=== PATIENT | male | born 1975 | race Caucasian/White ===

== ENCOUNTER 2021-06-25 14:54 | Observation (INO) | payer OTHER ==
[~2021-06-25] VITALS: Ht 172 cm; Wt 100.5 kg
[2021-06-25] MEDS ORDERED: NS IV 1000 ML 1,000 ML IV ONE (15:15)
[2021-06-25] MEDS ORDERED: NS IV 1000 ML 1,000 ML IV SCH (15:15)
[2021-06-25] MEDS ORDERED: BENZTROPINE 2 MG/2 ML INJ (COGENTIN) AMP IV ONE (15:15)
[2021-06-25 15:29] LABS: ALBUMIN 4.1 GM/DL (3.2-4.5); CHLORIDE 99 MMOL/L (98-107); POTASSIUM 3.3 MMOL/L (3.6-5.0); SODIUM 136 MMOL/L (135-145)
--- NOTE | 2021-06-25 15:29 | ED Psychosocial ---
General Stated Complaint: DETOX Source: patient Exam Limitations: no limitations (SOLE COLON) History of Present Illness Date Seen by Provider: Jun 25, 2021 Time Seen by Provider: 14:50 Initial Comments Patient to the ER by EMS from home with chief complaint of feeling like he is coming down off of the vásquez of cocaine and alcohol for the past several days. He has been drinking a sixpack of alcohol and smoking half a gram of cocaine at a time several times a day. He denies using any other recreational drugs. He does not smoke cigarettes or chew or dip. He is not having any shortness of b reath pain nausea vomiting or diarrhea. He says he feels bad and wants to kill himself. He wants her to stop taking his heart medications and diabetes medications in hopes that he will have a heart attack and . He has had suicidal ideation in the past but not gone to an inpatient psychiatric hospital. In the past he took a bunch of sleeping pills but never got help afterwards. He is known to [facility] for primary care. He has no history of heart disease or see any other specialist. Patient states he wants to be detoxed inpatient, something to drink and something to eat. (SOLE COLON) Allergies and Home Medications Allergies Coded Allergies: No Known Drug Allergies (Unverified , 06/25/21) Patient Home Medication List Home Medication List Reviewed: Yes (SOLE COLON) Review of Systems Constitutional: No chills, No diaphoresis EENTM: No ear discharge, No ear pain Respiratory: No cough, No short of breath Cardiovascular: No chest pain, No edema Gastrointestinal: No abdominal pain, No nausea, No vomiting Genitourinary: No discharge, No dysuria Musculoskeletal: No back pain, No joint pain Psychiatric/Neurological: Denies Numbness, Denies Tingling (SOLE COLON) All Other Systems Reviewed Negative Unless Noted: Yes (SOLE COLON) Past Zrswrkm-Cgangm-Zykujo Hx Patient Social History Tobacco Use?: No Use of E-Cig and/or Vaping dev: No Substance use?: Yes Substance type: Other (Cocaine) Alcohol Use?: Yes Alcohol type: Beer (6 pack a day) Alcohol Frequency: Daily (6 pack a day) (SOLE COLON) Physical Exam Vital Signs - First Documented 06/25/21 14:54 Temp 36.9 Pulse 93 Resp 18 B/P (MAP) 155/113 (127) (MELIZA RICCI DO) Capillary Refill : (SOLE COLON) Height, Weight, BMI Height: '" Weight: lbs. oz. kg; BMI Method: General Appearance: mild distress HEENT: PERRL/EOMI, pharynx normal Neck: non-tender, full range of motion, supple, normal inspection Respiratory: lungs clear, normal breath sounds, no respiratory distress, no accessory muscle use Cardiovascular: normal peripheral pulses, regular rate, rhythm Peripheral Pulses: 2+ Radial Pulses (R), 2+ Radial Pulses (L) Gastrointestinal: normal bowel sounds, non tender, soft Neurologic/Psychiatric: driver helper II-XII nml as tested, no motor/sensory deficits, alert, oriented x 3, other (Mildly anxious affect. Lip smacking and tongue thrusting the able to answer all questions satisfactorily) Appearance/Memory: no memory impairment, disheveled Behavior/Eye Contact: cooperative, good eye contact, normal speech Thoughts/Hallucinations: paranoid (Mild; concerned that the [employer] has placed lots of cameras in his house but does not know why. Says he likes to smoke crack in front of the camera's.) Skin: normal color, warm/dry (SOLE COLON) Progress/Results/Core Measures Results/Orders Lab Results Laboratory Tests Test 06/25/21 15:07 06/25/21 15:28 06/25/21 18:38 06/25/21 19:54 Range/Units White Blood Count 7.6 4.3-11.0 10^3/uL Red Blood Count 5.65 H 4.30-5.52 10^6/uL Hemoglobin 16.4 13.3-17.7 g/dL Hematocrit 46 40-54 % Mean Corpuscular Volume 82 80-99 fL Mean Corpuscular Hemoglobin 29 25-34 pg Mean Corpuscular Hemoglobin Concent 36 32-36 g/dL Red Cell Distribution Width 13.4 10.0-14.5 % Platelet Count 232 130-400 10^3/uL Mean Platelet Volume 11.3 9.0-12.2 fL Immature Granulocyte % (Auto) 0 % Neutrophils (%) (Auto) 79 H 42-75 % Lymphocytes (%) (Auto) 10 L 12-44 % Monocytes (%) (Auto) 8 0-12 % Eosinophils (%) (Auto) 3 0-10 % Basophils (%) (Auto) 1 0-10 % Neutrophils # (Auto) 6.0 1.8-7.8 10^3/uL Lymphocytes # (Auto) 0.8 L 1.0-4.0 10^3/uL Monocytes # (Auto) 0.6 0.0-1.0 10^3/uL Eosinophils # (Auto) 0.2 0.0-0.3 10^3/uL Basophils # (Auto) 0.0 0.0-0.1 10^3/uL Immature Granulocyte # (Auto) 0.0 0.0-0.1 10^3/uL Sodium Level 136 135-145 MMOL/L Potassium Level 3.3 L 3.6-5.0 MMOL/L Chloride Level 99 98-107 MMOL/L Carbon Dioxide Level 23 21-32 MMOL/L Anion Gap 14 5-14 MMOL/L Blood Urea Nitrogen 6 L 7-18 MG/DL Creatinine 1.02 0.60-1.30 MG/DL Estimat Glomerular Filtration Rate 78 BUN/Creatinine Ratio 6 Glucose Level 226 H 70-105 MG/DL Calcium Level 9.6 8.5-10.1 MG/DL Corrected Calcium 9.5 8.5-10.1 MG/DL Total Bilirubin 2.1 H 0.1-1.0 MG/DL Aspartate Amino Transf (AST/SGOT) 35 H 5-34 U/L Alanine Aminotransferase (ALT/SGPT) 38 0-55 U/L Alkaline Phosphatase 77 40-136 U/L Total Creatine Kinase 140 30-200 U/L Total Protein 6.8 6.4-8.2 GM/DL Albumin 4.1 3.2-4.5 GM/DL Salicylates Level < 5.0 L 5.0-20.0 MG/DL Acetaminophen Level < 10 L 10-30 UG/ML Serum Alcohol < 10 <10 MG/DL Urine Color YELLOW Urine Clarity CLEAR Urine pH 6.0 5-9 Urine Specific Wallace >=1.030 1.016-1.022 Urine Protein 2+ H NEGATIVE Urine Glucose (UA) 1+ H NEGATIVE Urine Ketones NEGATIVE NEGATIVE Urine Nitrite NEGATIVE NEGATIVE Urine Bilirubin 1+ H NEGATIVE Urine Urobilinogen 1.0 < = 1.0 MG/DL Urine Leukocyte Esterase NEGATIVE NEGATIVE Urine RBC (Auto) NEGATIVE NEGATIVE Urine RBC NONE /HPF Urine WBC 2-5 /HPF Urine Crystals PRESENT H /LPF Urine Amorphous Sediment FEW VONDA URATES H /LPF Urine Bacteria TRACE /HPF Urine Casts PRESENT /LPF Urine Hyaline Casts 25-50 H /LPF Urine Mucus LARGE H /LPF Urine Culture Indicated NO Urine Opiates Screen NEGATIVE NEGATIVE Urine Oxycodone Screen NEGATIVE NEGATIVE Urine Methadone Screen NEGATIVE NEGATIVE Urine Propoxyphene Screen NEGATIVE NEGATIVE Urine Barbiturates Screen NEGATIVE NEGATIVE Ur Tricyclic Antidepressants Screen NEGATIVE NEGATIVE Urine Phencyclidine Screen NEGATIVE NEGATIVE Urine Amphetamines Screen NEGATIVE NEGATIVE Urine Methamphetamines Screen NEGATIVE NEGATIVE Urine Benzodiazepines Screen NEGATIVE NEGATIVE Urine Cocaine Screen POSITIVE H NEGATIVE Urine Cannabinoids Screen NEGATIVE NEGATIVE SARS-CoV-2 RNA (RT-PCR) Not Detected Not Detecte Glucometer 293 H 70-110 MG/DL Test 06/25/21 21:31 Range/Units Glucometer 265 H 70-110 MG/DL (KEIRY,MELIZA K DO) My Orders Orders - KEIRY,MELIZA K DO Covid 19 Inhouse Test (06/25/21 17:57) Lidocaine 2% Viscous 15 Ml (Xylocaine Vi (06/25/21 19:30) Antacid Suspension (Mylanta Suspension (06/25/21 19:30) Accucheck Stat ONCE (06/25/21 19:36) Insulin (Regular) Human (Novolin R (Per (06/25/21 20:15) Accucheck Stat ONCE (06/25/21 21:32) (KEIRY,MELIZA K DO) Medications Given in ED Current Medications Medications Dose Ordered Sig/Ganesh Route Start Time Stop Time Status Last Admin Dose Admin Al Hydrox/Mg Hydrox/Simethicone 30 ml ONCE ONCE PO 06/25/21 19:30 06/25/21 19:31 DC 06/25/21 20:02 30 ML Benztropine Mesylate 2 mg ONCE ONCE IV 06/25/21 15:15 06/25/21 15:21 DC 06/25/21 16:30 2 MG Folic Acid 1 mg ONCE ONCE PO 06/25/21 15:45 06/25/21 15:46 DC 06/25/21 16:30 1 MG Insulin Human Regular 15 unit ONCE ONCE SC 06/25/21 20:15 06/25/21 20:16 DC 06/25/21 20:08 15 UNIT Lidocaine HCl 15 ml ONCE ONCE PO 06/25/21 19:30 06/25/21 19:31 DC 06/25/21 20:02 15 ML Thiamine HCl 100 mg ONCE ONCE PO 06/25/21 15:45 06/25/21 15:46 DC 06/25/21 16:56 100 MG (MELIZA RICCI DO) Vital Signs/I&O 06/25/21 14:54 Temp 36.9 Pulse 93 Resp 18 B/P (MAP) 155/113 (127) (MELIZA RICCI DO) Progress Progress Note #1: Time: 15:30 Progress Note Patient's not any significant acute delirium. No history of delirium tremens. Plan to give a couple liters of fluids folate and thiamine, Cogentin for his lipsmacking to see if it helps and check for rhabdomyolysis. After medical work-up we can then have the screeners from [facility] talk to him about appropriate follow-up. Progress Note #2: Time: 17:11 Progress Note Patient is resting quietly and got his thiamine and folate. He did finally get his Cogentin as well which helped with some of his dystonic symptoms. He did eat some pizza and slept and states that he would like still to go inpatient. We did discuss outpatient versus inpatient therapy and he is voluntary to go inpatient. He still endorses suicidal ideation with a plan to inject solvents or cleaning fluids into his veins. He says he does not have any at home but he could easily get some. Patient states he is never done this before. He says in the past when he tried to kill himself he was sleeping pills. The nurse was asked to contact the screeners for mental health so that we can start a telehealth screen. He is not endorsing any further paranoid delusions at this time. He has slept off and on since he got here. (SOLE COLON) Progress Note : Progress Note 1814--ASSUMED CARE FROM DR. COLON. PT IS CURRENTLY DOING A TELEHEALTH SCREEN. PT HAS BEEN EATING PIZZA THAT HE BROUGHT WITH HIM IN A BAG. PT HAS ALSO EATEN AN SANDWICH AND CHIPS PROVIDED BY HOSPITAL. 1899--TELEHEALTH SCREENER HAS DETERMINED THAT PT MEETS CRITERIA FOR INPATIENT TREATMENT, AND IS CURRENTLY ATTEMPTING TO FIND PLACEMENT 1929--PT'S INFORMATION IS BEING SENT TO [facility], THEY HAVE A BED 2034--[facility] HAS DECLINED DUE TO POSSIBILITY OF WITHDRAWL, ALSO ELEVATED BLOOD GLUCOSE. ADVISES TO ADMIT FOR 24 HOURS AND CALL THEM BACK PT IS SUPPOSED TO BE ON INSULIN, BUT REFUSES TO TAKE IT OR ANY OTHER MEDICATIONS, DOES NOT CHECK BLOOD SUGAR OR FOLLOW ANY DIABETIC DIET PT STATES HE HAS BEEN ADMITTED FOR PSYCH ISSUES SEVERAL TIMES. THE LAST TIME WAS OVER A YEAR AGO AT THE [facility] IN [place] PT IS PLEASANT AND COOPERATIVE AT THIS TIME PT CONTINUES TO BE AGREEABLE TO INPATIENT PSYCHIATRIC CARE, WELL ADMIT HERE FOR STABILIZATION TONIGHT. (MELIZA RICCI DO) Initial ECG Impression Date: Jun 25, 2021 Initial ECG Impression Time: 14:58 Initial ECG Rate: 95 Initial ECG Rhythm: Normal Sinus Initial ECG Intervals: Normal Initial ECG Impression: Normal, Nonspecific Changes Initial ECG Comparisson: No Previous ECG Available Comment Sinus rhythm without clinically relevant ST changes. Non specific half block ST elevation and anterior and lateral leads V1 through V5. (SOLE COLON) Departure Communication (Admissions) 2038--CALLED DR. THOMAS, MESSAGE LEFT ON CELL. 2054--SPOKE WITH DR. THOMAS, ACCEPTS PT FOR ADMIT (MELIZA RICCI DO) Impression Primary Impression: Passive suicidal ideations Additional Impressions: Substance abuse NONCOMPLIANT DIABETIC Alcohol abuse Cocaine use HTN (hypertension) Disposition: ADMITTED INPATIENT Condition: Stable Admissions Decision to Admit Reason: Admit from ER (General) Decision to Admit/Date: Jun 25, 2021 Time/Decision to Admit Time: 20:55 (MELIZA RICCI DO) SOLE COLON Jun 25, 2021 15:29 MELIZA RICCI DO Jun 25, 2021 18:44
[2021-06-25 15:31] LABS: BASOPHILS % (AUTO) 1 % (0-10); CALCIUM 9.6 MG/DL (8.5-10.1); EOSINOPHILS # (AUTO) 0.2 10^3/uL (0.0-0.3); EOSINOPHILS % (AUTO) 3 % (0-10); HEMATOCRIT 46 % (40-54); HEMOGLOBIN 16.4 g/dL (13.3-17.7); LYMPHOCYTES # (AUTO) 0.8 10^3/uL (1.0-4.0); LYMPHOCYTES % (AUTO) 10 % (12-44); MEAN CORPUSCULAR HEMOGLOBIN 29 pg (25-34); MEAN CORPUSCULAR HGB CONC 36 g/dL (32-36); MEAN CORPUSCULAR VOLUME 82 fL (80-99); MEAN PLATELET VOLUME 11.3 fL (9.0-12.2); MONOCYTES # (AUTO) 0.6 10^3/uL (0.0-1.0); MONOCYTES % (AUTO) 8 % (0-12); NEUTROPHILS % (AUTO) 79 % (42-75); PLATELET COUNT 232 10^3/uL (130-400); WHITE BLOOD COUNT 7.6 10^3/uL (4.3-11.0)
[2021-06-25 15:32] LABS: GLUCOSE 226 MG/DL (70-105); TOTAL PROTEIN 6.8 GM/DL (6.4-8.2)
[2021-06-25 15:33] LABS: CARBON DIOXIDE 23 MMOL/L (21-32)
[2021-06-25 15:34] LABS: BILIRUBIN,TOTAL 2.1 MG/DL (0.1-1.0)
[2021-06-25 15:36] LABS: ALKALINE PHOSPHATASE 77 U/L (40-136); CREATININE SERUM 1.02 MG/DL (0.60-1.30); GFR ESTIMATED 78
[2021-06-25 15:37] LABS: BUN/CREATININE RATIO 6
[2021-06-25 15:38] LABS: SALICYLATE < 5.0 MG/DL (5.0-20.0)
[2021-06-25 15:39] LABS: ALANINE AMINOTRANSFERASE 38 U/L (0-55)
[2021-06-25 15:42] LABS: ACETAMINOPHEN < 10 UG/ML (10-30)
[2021-06-25] MEDS ORDERED: FOLIC ACID 1 MG TAB PO ONE (15:45)
[2021-06-25] MEDS ORDERED: THIAMINE 100 MG (VITAMIN B-1) TAB PO ONE (15:45)
[2021-06-25 15:51] LABS: CLARITY,URINE CLEAR; COLOR,URINE YELLOW; GLUCOSE, URINE (UA) 1+ (NEGATIVE); KETONES,URINE NEGATIVE (NEGATIVE); LEUKOCYTE ESTERASE ,URINE NEGATIVE (NEGATIVE); NITRITE,URINE NEGATIVE (NEGATIVE); PROTEIN,URINE 2+ (NEGATIVE)
[2021-06-25 16:11] LABS: AMPHETAMINE SCREEN, URINE NEGATIVE (NEGATIVE); BARBITURATE SCREEN URINE NEGATIVE (NEGATIVE); BENZODIAZEPINES SCREEN URINE NEGATIVE (NEGATIVE); CANNABINOID SCREEN, URINE NEGATIVE (NEGATIVE); COCAINE SCREEN URINE POSITIVE (NEGATIVE); METHADONE STAT NEGATIVE (NEGATIVE); METHAMPHETAMINE SCREEN URINE S NEGATIVE (NEGATIVE); OPIATE SCREEN URINE NEGATIVE (NEGATIVE); OXYCODONE STAT NEGATIVE (NEGATIVE); PROPOXYPHENE STAT NEGATIVE (NEGATIVE); TRICYCLIC ANTIDEPRESSANTS SCRE NEGATIVE (NEGATIVE)
[2021-06-25 16:12] LABS: BILIRUBIN,URINE 1+ (NEGATIVE)
[2021-06-25 16:16] LABS: AMORPHOUS SEDIMENT,UR FEW AMOR URATES /LPF; BACTERIA,URINE TRACE /HPF; HYALINE CASTS, URINE 25-50 /LPF
[2021-06-25] MEDS ORDERED: LIDOCAINE 2% VISCOUS 15 ML UDC PO ONE (19:30)
[2021-06-25] MEDS ORDERED: ANTACID SUSP 30 ML UDC (MYLANTA) PO ONE (19:30)
[2021-06-25] MEDS ORDERED: inSUlin (REGULAR) HUMAN 1 UNIT/0.01 ML (CHARGE PER UNIT) SC ONE (20:15)
[2021-06-25] MEDS ORDERED: ONDANSETRON 4 MG/2 ML (SDV) Z0FRAN IV PRN ×2 (22:30→22:45)
[2021-06-25] MEDS ORDERED: ACETAMINOPHEN 500 MG TAB (TYLENOL) PO PRN (22:30)
[2021-06-25] MEDS ORDERED: ONDANSETRON 4 MG (ZOFRAN) ORAL DISSOLVE TAB SL PRN (22:45)
[2021-06-25] MEDS ORDERED: SENNA W/DOCUSATE (SENOKOT S) TABLET PO PRN (22:45)
[2021-06-25] MEDS ORDERED: LORazepam INJ 2 MG/ML (ATIVAN) VIAL IM/IV PRN (22:45)
[2021-06-25] MEDS ORDERED: LORazepam 1 MG (ATIVAN) TAB PO PRN (22:45)
[2021-06-25] MEDS: 1/2 NS W/KCL 20 MEQ/L 1,000 ML IV SCH (23:14)
[2021-06-25] MEDS: PANTOPRAZOLE 40 MG (PROTONIX) VIAL IV SCH (23:14)
[2021-06-25] MEDS ORDERED: MELATONIN 3 MG TABLET ONE (23:26)
--- NOTE | 2021-06-25 23:52 | Tele-ICU Progress Note ---
Progress Note 45M with DM, HTN, polysub abuse presented for voluntary admission for anticipated withdrawals and suicidal ideation. Has been drinking excessively and using cocaine, requesting inpatient detox. Initially reported wanting to stop all meds so he would have a heart attack and , however later endorsed wanting to inject cleaning solution. Was accepted to inpatient psych, pending 24-hour observation for withdrawal syndrome. - insulin sliding scale - CIWA - telesitter - transfer to psych when able Focused Exam Height, Weight, BMI Height: '" Weight: lbs. oz. kg; 33.05 BMI Method: MEHRAN RAMOS MD Jun 25, 2021 23:52
[2021-06-25] MEDS: MELATONIN 3 MG TABLET PO SCH (23:53)
[2021-06-26] MEDS: LORazepam INJ 2 MG/ML (ATIVAN) VIAL IV PRN ×4 (02:07→13:28)
[2021-06-26 04:05] LABS: BASOPHILS % (AUTO) 1 % (0-10); EOSINOPHILS # (AUTO) 0.3 10^3/uL (0.0-0.3); EOSINOPHILS % (AUTO) 5 % (0-10); HEMATOCRIT 42 % (40-54); HEMOGLOBIN 14.3 g/dL (13.3-17.7); LYMPHOCYTES % (AUTO) 18 % (12-44); MEAN CORPUSCULAR HEMOGLOBIN 29 pg (25-34); MEAN CORPUSCULAR HGB CONC 35 g/dL (32-36); MEAN CORPUSCULAR VOLUME 84 fL (80-99); MEAN PLATELET VOLUME 11.7 fL (9.0-12.2); MONOCYTES # (AUTO) 0.5 10^3/uL (0.0-1.0); MONOCYTES % (AUTO) 9 % (0-12); NEUTROPHILS % (AUTO) 68 % (42-75); PLATELET COUNT 180 10^3/uL (130-400); WHITE BLOOD COUNT 5.9 10^3/uL (4.3-11.0)
[2021-06-26 04:16] LABS: POTASSIUM 3.2 MMOL/L (3.6-5.0)
[2021-06-26 04:18] LABS: CALCIUM 8.8 MG/DL (8.5-10.1)
[2021-06-26 04:22] LABS: CREATININE SERUM 0.97 MG/DL (0.60-1.30); PHOSPHORUS 3.4 MG/DL (2.3-4.7)
[2021-06-26 04:24] LABS: MAGNESIUM 2.1 MG/DL (1.6-2.4)
[2021-06-26] MEDS: POTASSIUM CL 10MEQ/50ML IVPB 50 ML IV SCH (04:51)
[2021-06-26] MEDS: KCL 20 MEQ TAB (K-DUR) PO SCH (04:51)
[2021-06-26] MEDS: MAGNESIUM 1 GM/100 ML IVPB 100 ML IV SCH (04:51)
[2021-06-26] MEDS: inSUlin ASPART (NovoLOG) 1 UNIT/0.01 ML (CHARGE PER UNIT) SC SCH ×3 (05:09→16:09)
[2021-06-26] MEDS: 1/2 NS W/KCL 20 MEQ/L 1,000 ML IV SCH ×3 (06:29→20:48)
[2021-06-26] MEDS: PANTOPRAZOLE 40 MG (PROTONIX) VIAL IV SCH (08:16)
[2021-06-26] MEDS ORDERED: KCL 20 MEQ TAB (K-DUR) PO ONE ×2 (09:00→11:00)
[2021-06-26] MEDS: THIAMINE INJECTION 100 MG, FOLIC ACID INJECTION 1 MG, MAGNESIUM SULFATE 2 GM, VITAMIN M... IV SCH ×5 (09:15)
--- NOTE | 2021-06-26 10:56 | Tele-ICU Progress Note ---
Subjective Date Seen by a Provider: Jun 26, 2021 Time Seen by a Provider: 10:30 Subjective/Events-last exam Patient acknowledged, consented, and participated in this virtual visit which was conducted using real time audio/video. Thank you for asking us to see this patient for withdrawal from Alcohol/Cocaine. HPC: Recent events: Nil overnight ROS limited to HPI PE: VSS Appears comfortable. HEENT: No obvious masses, adenopathy or JVD. Chest: clear to auscultation. CV: RRR S1 S2 No murmur or added sounds. Abd: Non-tender. Bowel sounds +. : Unremarkable. Beckman: N . OIL AND GAS RECRUITER/psychiatric: Alert and oriented, grossly intact. No obvious focal findings. Extremities:No edema. Capillary refill < 3 seconds. Skin: unremarkable. Results: Decreased K 3.2 . A/P: Substance Withdrawal Syndrome: Cont PRN ativan, KCl. Monitor in ICU.Available chart/ vitals / labs / Images reviewed Video assessment done using teleICU camera, rest of exam as per yarn examiner: critically ill patient. Discussed with LISA Saenz. Asked RN to reach out to eICU if any questions or concerns later. Time spent with patient//coordination of care with other health professionals (mins) 5: Sepsis Event Evaluation Height, Weight, BMI Height: '" Weight: lbs. oz. kg; 33.05 BMI Method: Exam Exam Patient acknowledged, consented, and participated in this virtual visit which was conducted using real time audio/video Vital Signs Date Time Temp Pulse Resp B/P (MAP) Pulse Ox O2 Delivery O2 Flow Rate FiO2 06/26/21 10:00 72 20 123/85 (98) 93 Room Air 06/26/21 09:00 71 20 127/83 (98) 96 Room Air 06/26/21 08:00 69 20 121/88 (101) 98 Room Air 06/26/21 07:45 36.0 06/26/21 07:00 69 17 145/99 (113) Room Air 06/26/21 07:00 69 06/26/21 06:00 78 20 133/70 (91) 96 Room Air 06/26/21 05:00 73 19 135/90 (105) 96 Room Air 06/26/21 04:00 67 16 130/96 (107) 97 Room Air 06/26/21 04:00 36.6 06/26/21 03:45 Room Air 06/26/21 03:00 80 17 120/92 (101) 96 Room Air 06/26/21 02:00 68 19 118/74 (89) 100 Room Air 06/26/21 01:00 71 15 147/78 (101) 96 Room Air 06/26/21 01:00 71 06/26/21 00:00 73 16 141/98 (112) 97 Room Air 06/25/21 23:00 81 19 195/123 (147) 100 Room Air 06/25/21 23:00 Room Air 06/25/21 22:45 87 16 97 Room Air 06/25/21 22:34 76 06/25/21 22:15 73 15 160/111 (127) 98 Room Air 06/25/21 22:15 36.4 06/25/21 22:00 93 18 129/80 98 Room Air 06/25/21 14:54 36.9 93 18 155/113 (127) I & O 06/26/21 07:00 Intake Total 2200 ml Output Total 150 ml Balance 2050 ml Height & Weight Height: '" Weight: lbs. oz. kg; 33.05 BMI Method: General Appearance: Obese Capillary Refill: Less Than 3 Seconds Peripheral Pulses: 1+ Dorsalis Pedis (R), 1+ Left Dors-Pedis (L); 2+ Radial Pulses (R), 2+ Radial Pulses (L) Gastrointestinal: normal bowel sounds, non tender, soft Results Lab Laboratory Tests 06/25/21 15:07 06/26/21 03:20 Assessment/Plan Assessment/Plan see free text Critical Care: Critically Ill Patient Time spent on discussion(mins): 0 MIGUEL AGUILAR MD Jun 26, 2021 10:56
[2021-06-26] MEDS: ANTACID SUSP 30 ML UDC (MYLANTA) PO PRN ×2 (12:58→15:50)
[2021-06-26 14:06] VITALS: BP 129/94
[2021-06-26] MEDS ORDERED: EMPA25TA PO (14:25)
[2021-06-26] MEDS ORDERED: METF-478 PO (14:25)
[2021-06-26] MEDS ORDERED: LOSA25TA41 PO (14:25)
[2021-06-26] MEDS ORDERED: ASPI-1238 PO (14:25)
[2021-06-26] MEDS ORDERED: INSU100I55 SQ (14:25)
[2021-06-26] MEDS ORDERED: ATOR80TA76 PO (14:25)
[2021-06-26] MEDS ORDERED: CARV6.252 PO (14:25)
[2021-06-26] MEDS ORDERED: OLN5T PO (14:25)
[2021-06-26] MEDS ORDERED: INSU100I10 SQ (14:25)
[2021-06-26 15:13] VITALS: BP 142/93
--- NOTE | 2021-06-26 17:14 | History & Physical-Hospitalist ---
History of Present Illness HPI/Chief Complaint Juan Gonzalez is a 45-year-old male with past medical history of hypertension, hyperlipidemia, type 2 diabetes mellitus on insulin, depression, who presented with suicidal ideation. He has reportedly been smoking crack cocaine and drinking alcohol daily. He was making suicidal statements in the emergency room. Upon my examination, he would not wake up and answer questions. He would open his eyes but refused to participate. He was screened by a mental health provider and deemed to require inpatient psychiatric treatment. He is on a waiting list at [facility]. Source: RN/MD Exam Limitations: clinical condition Date Seen 06/26/21 Time Seen by a Provider: 10:15 Attending Physician Davon Rhodes MD PCP Referring Physician Date of Admission Jun 25, 2021 at 21:44 Home Medications & Allergies Home Medications Reviewed patient Home Medication Reconciliation performed by pharmacy medication reconciliations audio technician and/or nursing. Patients Allergies have been reviewed. Allergies Allergies Coded Allergies No Known Drug Allergies (Unverified06/25/21) Past Avqmchk-Gyfqgk-Mwiiuk Hx Patient Social History Tobacco Use?: No Use of E-Cig and/or Vaping dev: No Substance use?: Yes Substance type: Other Additional substance use comme: COCAINE Substance frequency: Daily Alcohol Use?: Yes Alcohol type: Beer Alcohol Frequency: Daily Pt feels they are or have been: Yes Current Status Advance Directives: No Communicates: Verbally Primary Language: Uzbek Preferred Spoken Language: Uzbek Is interpretation needed?: No Past Medical History High Cholesterol, Hypertension Diabetes, Insulin dep Nursing Suicide Risk Notes: Pt reports that he has not been taking his prescriptions medication in hopes of "having a heart attack and dying" and if that didn't work, he would inject cleaning solution in his arm. Pt reports he has previously attempted suicide years ago by taking a large amount of sleeping pills Family Medical History No Pertinent Family Hx Review of Systems ROS-Unable to Obtain: Uncooperative Constitutional: see HPI Physical Exam Physical Exam Vital Signs Vital Signs - First Documented 06/25/21 06/25/21 14:54 22:00 Temp 36.9 Pulse 93 Resp 18 B/P (MAP) 155/113 (127) Pulse Ox 98 O2 Delivery Room Air Capillary Refill : Less Than 3 Seconds Height, Weight, BMI Height: '" Weight: lbs. oz. kg; 33.05 BMI Method: General Appearance: No Apparent Distress, Obese HEENT: PERRL/EOMI, Pharynx Normal Neck: Normal Inspection, Supple Respiratory: Lungs Clear, Normal Breath Sounds, No Respiratory Distress Cardiovascular: Regular Rate, Rhythm, No Edema, No Murmur Gastrointestinal: Normal Bowel Sounds, Non Tender, Soft Extremity: Normal Inspection, Non Tender, No Pedal Edema Neurologic/Psychiatric: Alert, Depressed Affect, Other (Uncooperative) Skin: Normal Color, Warm/Dry Lymphatic: No Adenopathy Results Results/Procedures Labs Laboratory Tests 06/25/21 15:07 06/26/21 03:20 Patient resulted labs reviewed. Imaging: Reviewed Imaging Report Assessment/Plan Admission Diagnosis Suicidal ideation Admission Status: Observation Reason for Inpatient Admission: Monitoring for withdrawal Assessment and Plan Suicidal ideation Screened by mental health provider Deemed to require inpatient psychiatric treatment Awaiting acceptance Social work assisting T2DM with hyperglycemia Begin Levemir Begin Novolog with meals Sliding scale insulin HTN Continue Coreg and Losartan HLD Continue Lipitor Alcohol abuse CIWA protocol Cocaine abuse Monitor, no acute management needs Obesity Clinically significant, no acute management needs Diagnosis/Problems Diagnosis/Problems (1) Passive suicidal ideations Status: Acute (2) Cocaine use Status: Acute (3) Alcohol abuse Status: Acute (4) T2DM (type 2 diabetes mellitus) Status: Acute Qualifiers: Diabetes mellitus longterm insulin use: with buttermaker use Diabetes mellitus complication status: with hyperglycemia Qualified Codes: E11.65 - Type 2 diabetes mellitus with hyperglycemia; 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
[2021-06-26] MEDS ORDERED: inSUlin ASPART (NovoLOG) 1 UNIT/0.01 ML (CHARGE PER UNIT) SC SCH (17:15)
[2021-06-26 19:05] VITALS: BP 128/86
[2021-06-26] MEDS: OLANZapine 5 MG (ZyPREXA) TAB PO SCH (20:45)
[2021-06-26] MEDS: MELATONIN 3 MG TABLET PO SCH (20:46)
[2021-06-26 23:41] VITALS: BP 110/74
[2021-06-27 03:31] VITALS: BP 103/70
[2021-06-27 05:16] LABS: BASOPHILS % (AUTO) 0 % (0-10); EOSINOPHILS # (AUTO) 0.3 10^3/uL (0.0-0.3); EOSINOPHILS % (AUTO) 4 % (0-10); HEMATOCRIT 42 % (40-54); HEMOGLOBIN 14.1 g/dL (13.3-17.7); LYMPHOCYTES # (AUTO) 0.9 10^3/uL (1.0-4.0); LYMPHOCYTES % (AUTO) 16 % (12-44); MEAN CORPUSCULAR HEMOGLOBIN 29 pg (25-34); MEAN CORPUSCULAR HGB CONC 33 g/dL (32-36); MEAN CORPUSCULAR VOLUME 86 fL (80-99); MEAN PLATELET VOLUME 11.9 fL (9.0-12.2); MONOCYTES # (AUTO) 0.5 10^3/uL (0.0-1.0); MONOCYTES % (AUTO) 9 % (0-12); NEUTROPHILS # (AUTO) 4.1 10^3/uL (1.8-7.8); NEUTROPHILS % (AUTO) 71 % (42-75); PLATELET COUNT 158 10^3/uL (130-400); WHITE BLOOD COUNT 5.8 10^3/uL (4.3-11.0)
[2021-06-27 05:25] LABS: POTASSIUM 4.2 MMOL/L (3.6-5.0)
[2021-06-27 05:26] LABS: CALCIUM 8.6 MG/DL (8.5-10.1)
[2021-06-27 05:30] LABS: CREATININE SERUM 0.82 MG/DL (0.60-1.30); PHOSPHORUS 2.1 MG/DL (2.3-4.7)
[2021-06-27 05:33] LABS: MAGNESIUM 2.3 MG/DL (1.6-2.4)
[2021-06-27] MEDS: MAGNESIUM 1 GM/100 ML IVPB 100 ML IV SCH (05:45)
[2021-06-27] MEDS: KCL 20 MEQ TAB (K-DUR) PO SCH (05:45)
[2021-06-27] MEDS: POTASSIUM CL 10MEQ/50ML IVPB 50 ML IV SCH (05:45)
[2021-06-27] MEDS ORDERED: inSUlin ASPART (NovoLOG) 1 UNIT/0.01 ML (CHARGE PER UNIT) SC SCH ×2 (07:00→12:00)
[2021-06-27 07:45] VITALS: BP 138/80
[2021-06-27] MEDS: 1/2 NS W/KCL 20 MEQ/L 1,000 ML IV SCH ×4 (07:50→22:24)
[2021-06-27] MEDS ORDERED: POT PHOS/NA PHOS (K-PHOS NEUTRAL) PO ONE (08:30)
[2021-06-27] MEDS ORDERED: LOSARTAN 25 MG (COZAAR) TAB PO SCH (09:00)
[2021-06-27] MEDS: PANTOPRAZOLE 40 MG (PROTONIX) VIAL IV SCH (09:38)
[2021-06-27] MEDS: LOSARTAN 25 MG (COZAAR) TAB PO SCH ×2 (09:38→22:24)
[2021-06-27] MEDS: THIAMINE INJECTION 100 MG, FOLIC ACID INJECTION 1 MG, MAGNESIUM SULFATE 2 GM, VITAMIN M... IV SCH ×5 (09:53)
[2021-06-27 11:05] VITALS: BP 113/78
[2021-06-27] MEDS: inSUlin ASPART (NovoLOG) 1 UNIT/0.01 ML (CHARGE PER UNIT) SC SCH ×5 (12:34→22:24)
--- NOTE | 2021-06-27 12:43 | Progress Note - Hospitalist ---
Subjective HPI/CC On Admission Date Seen by Provider: Jun 27, 2021 Time Seen by Provider: 10:25 Juan Gonzalez is a 45-year-old male with past medical history of hypertension, hyperlipidemia, type 2 diabetes mellitus on insulin, depression, who presented with suicidal ideation. He has reportedly been smoking crack cocaine and drinking alcohol daily. He was making suicidal statements in the emergency room. Upon my examination, he would not wake up and answer questions. He would open his eyes but refused to participate. He was screened by a mental health provider and deemed to require inpatient psychiatric treatment. He is on a waiting list at [facility]. Subjective/Events-last exam He is more awake today. He is not having any pain. He is not having any trouble breathing. He has been a little shaky. He has been nauseous. We discussed his crack cocaine use. He says that "they are always watching". He says that the police have been sticking out and following him. He also thinks they have cameras in his apartment and are watching him. Objective Exam Vital Signs Vital Signs Date Time Temp Pulse Resp B/P (MAP) Pulse Ox O2 Delivery O2 Flow Rate FiO2 06/27/21 11:05 36.1 70 24 113/78 (90) 97 Room Air Capillary Refill : Less Than 3 Seconds General Appearance: No Apparent Distress, Obese Respiratory: Lungs Clear, Normal Breath Sounds, No Respiratory Distress Cardiovascular: Regular Rate, Rhythm, No Edema, No Murmur Gastrointestinal: Normal Bowel Sounds, Non Tender, Soft Extremity: Normal Inspection, Non Tender, No Pedal Edema Neurologic/Psychiatric: Alert, No Motor/Sensory Deficits, 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, Disoriented Skin: Normal Color, Warm/Dry Results/Procedures Lab Laboratory Tests 06/27/21 04:57 Patient resulted labs reviewed. Imaging: Reviewed Imaging Report Assessment/Plan Assessment and Plan Assess & Plan/Chief Complaint Suicidal ideation Paranoid delusions Possible underlying schizophrenia Prior suicide attempt with "sleeping pills" Continues to have passive suicidal ideation Screened by mental health provider Deemed to require inpatient psychiatric treatment Awaiting acceptance Social work assisting T2DM with hyperglycemia Increase Levemir Increase Novolog with meals Sliding scale insulin HTN Continue Coreg and Losartan HLD Continue Lipitor Alcohol abuse CIWA protocol Cocaine abuse Monitor, no acute management needs Obesity Clinically significant, no acute management needs Diagnosis/Problems Diagnosis/Problems (1) Passive suicidal ideations Status: Acute (2) Paranoid delusion Status: Acute (3) Cocaine use Status: Acute (4) Alcohol abuse Status: Acute (5) T2DM (type 2 diabetes mellitus) Status: Acute Qualifiers: Diabetes mellitus longterm insulin use: with ocean transportation intermediary use Diabetes mellitus complication status: with hyperglycemia Qualified Codes: E11.65 - Type 2 diabetes mellitus with hyperglycemia; 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
[2021-06-27 15:23] VITALS: BP 100/66
[2021-06-27 19:32] VITALS: BP 126/70
[2021-06-27] MEDS: OLANZapine 5 MG (ZyPREXA) TAB PO SCH (22:24)
[2021-06-27] MEDS: MELATONIN 3 MG TABLET PO SCH (22:25)
[2021-06-27 23:14] VITALS: BP 141/86
[2021-06-28 03:22] VITALS: BP 100/66
[2021-06-28 05:46] LABS: BASOPHILS % (AUTO) 0 % (0-10); EOSINOPHILS # (AUTO) 0.4 10^3/uL (0.0-0.3); EOSINOPHILS % (AUTO) 5 % (0-10); HEMATOCRIT 41 % (40-54); HEMOGLOBIN 14.1 g/dL (13.3-17.7); LYMPHOCYTES # (AUTO) 1.2 10^3/uL (1.0-4.0); LYMPHOCYTES % (AUTO) 16 % (12-44); MEAN CORPUSCULAR HEMOGLOBIN 29 pg (25-34); MEAN CORPUSCULAR HGB CONC 35 g/dL (32-36); MEAN CORPUSCULAR VOLUME 84 fL (80-99); MEAN PLATELET VOLUME 11.2 fL (9.0-12.2); MONOCYTES # (AUTO) 0.5 10^3/uL (0.0-1.0); MONOCYTES % (AUTO) 7 % (0-12); NEUTROPHILS # (AUTO) 5.2 10^3/uL (1.8-7.8); NEUTROPHILS % (AUTO) 71 % (42-75); PLATELET COUNT 170 10^3/uL (130-400); WHITE BLOOD COUNT 7.3 10^3/uL (4.3-11.0)
[2021-06-28 05:59] LABS: POTASSIUM 3.9 MMOL/L (3.6-5.0)
[2021-06-28 06:01] LABS: CALCIUM 8.4 MG/DL (8.5-10.1)
[2021-06-28 06:05] LABS: CREATININE SERUM 0.82 MG/DL (0.60-1.30); PHOSPHORUS 2.8 MG/DL (2.3-4.7)
[2021-06-28 06:08] LABS: MAGNESIUM 2.1 MG/DL (1.6-2.4)
[2021-06-28] MEDS: POTASSIUM CL 10MEQ/50ML IVPB 50 ML IV SCH (06:09)
--- OUTSIDE RECORDS SUMMARY | 2021-06-28 06:09 | XMS REPORT | Clinical Summary ---
Author Author [facility] Health Organization [facility] Address Unknown Phone Unavailable Care Team Providers Care Prosthetics Technician Name Role Phone None, Pcp MD PCP Unavailable Source Comments [facility] (Labor and Delivery) documents do [facility] appear [facility] Allergies No Known Active Allergies Medications * Please verify current medications with patient. End Date Status Medication Sig Dispensed Refills Start Date Active ACETAMINOPHEN (TYLENOL 8 0 HOUR ORAL) Active Problems Not on file Social History Date Tobacco Use Types Packs/Day Years Used Never Assessed Sex Assigned at Date Recorded Not on file Last Filed Vital Signs Not on file Plan of Treatment Health Maintenance Due Date Last Done Comments COVID-19 Vaccine (1) 1987 Influenza Vaccine (#1) 2021 HPV Vaccine Aged Out No longer eligible based on patient's age to complete this topic Pneumococcal Vaccine: Aged Out No longer eligib le based on patient's age to Pediatrics (0 to 5 Years) complete this topic and At-Risk Patients (6 to 64 Years) Results Not on filefrom Last 3 Months Insurance Type Payer Benefit Subscriber ID Effective Phone Address Plan / Dates Group PPO BCBS/NEIL ZZBCBS MD [id number] Effective - FEDERAL for all dates [address] (Home) [place] [id number] Advance Directives Patient Scrap Worker Explanation Type Date Recorded Living Will CPR Directives Durable Medical POA Advanced Directives 09/22/2012 8:56 AM
[2021-06-28] MEDS: KCL 20 MEQ TAB (K-DUR) PO SCH (06:10)
[2021-06-28] MEDS: MAGNESIUM 1 GM/100 ML IVPB 100 ML IV SCH (06:10)
[2021-06-28] MEDS: 1/2 NS W/KCL 20 MEQ/L 1,000 ML IV SCH (06:11)
[2021-06-28] MEDS: inSUlin ASPART (NovoLOG) 1 UNIT/0.01 ML (CHARGE PER UNIT) SC SCH ×3 (06:58→11:47)
[2021-06-28 07:51] VITALS: BP 100/50
[2021-06-28] MEDS: LOSARTAN 25 MG (COZAAR) TAB PO SCH ×2 (08:34→08:54)
[2021-06-28] MEDS: THIAMINE INJECTION 100 MG, FOLIC ACID INJECTION 1 MG, MAGNESIUM SULFATE 2 GM, VITAMIN M... IV SCH ×5 (08:54)
[2021-06-28] MEDS ORDERED: PANTOPRAZOLE 40 MG (PROTONIX) TAB PO SCH (09:00)
[2021-06-28] MEDS ORDERED: INSU100I55 SQ (09:04)
[2021-06-28] MEDS ORDERED: INSU100I10 SQ (09:04)
--- OUTSIDE RECORDS SUMMARY | 2021-06-28 10:36 | XMS REPORT | Encounter Summary ---
Author Author [facility] Address Unknown Phone Unavailable Care Team Providers Care Aircraft Engine Assembler Name Role Phone PCP Unavailable Encounter Details Care Team Description Date Type Department 06/28/2021 Travel Social History Date Tobacco Use Types Packs/Day Years Used Never Assessed Sex Assigned at Date Recorded Not on file Date Recorded COVID-19 Exposure Response 06/28/2021 3:03 AM CDT In the last month, have you been in contact with No / Unsure someone who was confirmed or suspected to have Coronavirus / COVID-19? documented as of this encounter Plan of Treatment Not on filedocumented as of this encounter Visit Diagnoses Not on filedocumented in this encounter
--- OUTSIDE RECORDS SUMMARY | 2021-06-28 10:36 | XMS REPORT | Clinical Summary ---
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 Last Filed Vital Signs Reading Time Taken Comments Vital Sign - - Blood Pressure - - Pulse - - Temperature - - Respiratory Rate - - Oxygen Saturation - - Inhaled Oxygen Concentration 99.8 kg (220 lb) 06/28/2021 3:00 AM CDT Weight 172.7 cm (5' 8") 06/28/2021 3:00 AM CDT Height 33.45 06/28/2021 3:00 AM CDT Body Mass Index Plan of Treatment Health Maintenance Due Date Last Done Comments Varicella Vaccines (1 of 1974 2 - 2-dose childhood series) COVID-19 Vaccine (1) 1985 Hepatitis C Screening 1991 DTaP,Tdap,and Td Vaccines 1992 (1 - Tdap) MMR Vaccines-Adult 1992 Influenza Vaccine (#1) 2021 Pneumo-Vaccine: 65+Yrs (1 2038 of 1 - PPSV23) HIB Vaccines Aged Out No longer eligible based on patient's age to complete this topic IPV Vaccines Aged Out No longer eligible based on patient's age to complete this topic Meningococcal Vaccine Aged Out No longer eligib le based on patient's age to complete this topic Pneumo-Vaccine: Peds (0-5 Aged Out No longer el igible based on patient's age to Yrs) & At-Risk Patients complete this topic (6-64 Yrs) Rotavirus Vaccines Aged Out No longer eligible based on patient's age to complete this topic Results Not on filefrom Last 3 Months Advance Directives For more information, please contact: [phone] Patient Educational Interpreter Explanation Type Date Recorded Advance Directives and Living Will Power of Senior Net C Developer
[2021-06-28 11:17] VITALS: BP 119/65
[2021-06-28] MEDS ORDERED: inSUlin ASPART (NovoLOG) 1 UNIT/0.01 ML (CHARGE PER UNIT) SC SCH (12:00)
--- NOTE | 2021-07-15 19:57 | Discharge Summary ---
Discharge Summary Hospital Course Problems/Dx: (1) Passive suicidal ideations Status: Acute (2) Paranoid delusion Status: Acute (3) Cocaine use Status: Acute (4) Alcohol abuse Status: Acute (5) T2DM (type 2 diabetes mellitus) Status: Acute Qualifiers: Qualified Codes: E11.65 - Type 2 diabetes mellitus with hyperglycemia; Z79.4 - director long term care (current) use of insulin Hospital Course Date of Admission: Jun 25, 2021 at 22:18 Admission Diagnosis : Suicidal ideation Family Physician/Provider: Date of Discharge: 06/28/21 Discharge Diagnosis: Suicidal ideation, paranoid delusions, polysubstance abuse, T2DM Hospital Course: Juan Gonzalez is a 45 year old male who was admitted with suicidal ideation. He also had paranoid delusions and has been using crack cocaine and alcohol daily. He was medically stabilized. He was screened by mental health and deemed to require inpatient treatment. He was transferred to [facility] for ongoing psychiatric treatment. Labs and Pending Lab Test: Microbiology 06/25/21 MRSA Screen - Final, Complete MRSA not isolated Home Meds Active Insulin Aspart Flexpen (Insulin Aspart) 100 Unit/1 Ml Insuln.pen 10 Unit SQ QID W/MEALS 30 Days Lantus Solostar (Insulin Glargine,Hum.rec.anlog) 100 Unit/1 Ml Insuln.pen 30 Unit SQ HS 30 Days Reported Atorvastatin Calcium 80 Mg Tablet 40 Mg PO HS TAKE OF A 80MG TAB Olanzapine 5 Mg Tablet 5 Mg PO HS Carvedilol 6.25 Mg Tablet 6.125 Mg PO BID Metformin HCl ER (Metformin HCl) 500 Mg Tab.er.24 1,000 Mg PO BID TAKE 2 (500MG) TABS Aspirin EC (Aspirin) 81 Mg Tablet.dr 81 Mg PO DAILY Losartan Potassium 25 Mg Tablet 25 Mg PO DAILY Jardiance (Empagliflozin) 25 Mg Tablet 12.5 Mg PO DAILY TAKE OF A 25MG TAB Assessment/Pt Instructions Patient transferred for inpatient psychiatry Discharge Planning: <30 minutes discharge planning Discharge Instructions Discharge Diet: ADA Diet Activity as Tolerated: Yes Discharge Physical Examination Allergies: Coded Allergies: No Known Drug Allergies (Unverified , 06/25/21) Discharge Summary Date of Admission Jun 25, 2021 at 22:18 Date of Discharge Jun 28, 2021 at 13:09 Discharge Date: Jun 28, 2021 Discharge Time: 13:09 Admission Diagnosis Suicidal ideation Comfort Measures/ Time spent on discussion (min): 0 Discharge Diagnosis Suicidal ideation Paranoid delusions T2DM with hyperglycemia Polysubstance abuse (1) Passive suicidal ideations Status: Acute (2) Paranoid delusion Status: Acute (3) Cocaine use Status: Acute (4) Alcohol abuse Status: Acute (5) T2DM (type 2 diabetes mellitus) Status: Acute Qualifiers: Qualified Codes: E11.65 - Type 2 diabetes mellitus with hyperglycemia; Z79.4 - penitentiary (current) use of insulin DAVON RHODES MD Jul 15, 2021 19:57
== END 2021-06-28 13:09 ==
LOC: ER 14:55 → ICU 21:44 → UNDOADMOB 21:44 → ICU 22:18 → 4TH 06-26 13:34 → UNDODISOB 06-28 12:09
PROVIDERS: ADMIT Internal Medicine; ATTEND Internal Medicine
DX: R45.851 Suicidal ideations (principal); I10 Essential (primary) hypertension; E78.5 Hyperlipidemia, unspecified; F32.9 Major depressive disorder, single episode, unspecified; E78.00 Pure hypercholesterolemia, unspecified; E11.65 Type 2 diabetes mellitus with hyperglycemia; E66.9 Obesity, unspecified; F10.10 Alcohol abuse, uncomplicated; F14.10 Cocaine abuse, uncomplicated; F22 Delusional disorders; Z79.4 Long term (current) use of insulin; Z91.14 Patient's other noncompliance with medication regimen; Z79.899 Other long term (current) drug therapy; Z79.82 Long term (current) use of aspirin; Z68.34 Body mass index [BMI] 34.0-34.9, adult
CPT/HCPCS: 36415; 80048; 80053; 80306; 80320; 80329; 81000; 82550; 82947; 83735; 84100; 85025; 87081; 87636; 93005; 93041; 96361; 96372; 96374; G0378

== ENCOUNTER 2021-10-07 14:41 | Observation (INO) | payer OTHER ==
[~2021-10-07] VITALS: Ht 170 cm; Wt 108.8 kg
[~2021-10-07 14:41] MED LIST: ASPI-1238 PO; ATOR80TA76 PO; CARV6.252 PO; EMPA25TA PO; INSU100I10 SQ; INSU100I55 SQ; LOSA25TA41 PO; METF-478 PO; OLN5T PO
--- NOTE | 2021-10-07 15:13 | ED Psychosocial ---
General Chief Complaint: Psych/Social Disorder Stated Complaint: SI Nursing Triage Note: ARRIVED VIA EMS FROM HOME. TOLD HIS SENIOR NET DEVELOPER ARCHITECT AT THE MD HE HAD BEEN TAKING HIGH DOSES OF INSULIN THIS PAST WEEK TO TRY AND GO INTO A COMA AND KILL HIMSELF. STATES HE HAS BEEN TAKING UP TO 300 UNITS A DAY. TODAY HAD TAKEN 120 UNITS AND WAS ABOUT TO TAKE MORE WHEN EMS SHOWED UP AT HIS DOOR. PREVIOUS ATTEMPTS TO KILL HIMSELF IN THE PAST. Source: patient Exam Limitations: no limitations History of Present Illness Date Seen by Provider: Oct 07, 2021 Time Seen by Provider: 14:50 Initial Comments Patient presents ER by EMS from his own home with chief complaint he was attempting to kill himself actively by overdosing himself with his own insulin for the past week. He typically uses 75 units a day +40 units of Lantus at [facility]. He took all of his Lantus till he ran out and has been injecting 300 units of NovoLog daily. He had taken 125 units this morning already. His director social welfare at his primary care office, [facility] [place] called to speak with him. He was forthright with her with what he was doing and so she summonsed EMS. He says when police arrived he had only injected 125 units. Initial blood sugar was in the 80s. For us it was 78. He says he feels shaky and little sweaty. He also took his whole months worth of Ozempic on Tuesday, 4 doses. He denies any abdominal pain diarrhea nausea vomiting. He says he feels a little blurry vision. He says typically his blood sugars run 150-200 after meals when he checks it. He has a history of major depression, PTSD, hy pertension and hyperlipidemia. He has had 2 attempts at suicide in the past. He stated both the [facility] and at [facility] in [place]. He has a mental health provider through the [facility] set up but he has not met them yet. His previous provider moved away recently. He has had 2 doses of COVID-19 vaccination in January 2021. He denies cough fever chills nausea vomiting. He is willing to go inpatient for psychiatric help. He states he is interested in getting help today. He says in the past he has used cocaine and his last use was almost 4 months ago and before that was 18 months. He occasionally smokes and denies drinking chewing or other recreational drug use. The patient states that many years ago they took him off his Seroquel and Ativan citing his diabetes. He thought that those medications were helping him. Patient states that there is nothing specific that has driven him to want to kill himself lately. He says he has always been very depressed and does not go out or have hobbies or interests or friends. He says he got fired from his previous job because he could not comprehend instructions or pay attention. He says people have repeatedly told him that he is dull and uninteresting. He says he is tired of living and wants to end it all. Allergies and Home Medications Allergies Coded Allergies: No Known Drug Allergies (Unverified , 06/25/21) Patient Home Medication List Home Medication List Reviewed: Yes Aspirin (Aspirin EC) 81 Mg Tablet.dr, 81 MG PO DAILY, (Reported) Entered as Reported by: MARLA ROUSE on 06/26/211424 Atorvastatin Calcium (Atorvastatin Calcium) 80 Mg Tablet, 40 MG PO HS, (Reporte d) Entered as Reported by: MARLA ROUSE on 06/26/211424 Carvedilol (Carvedilol) 6.25 Mg Tablet, 6.125 MG PO BID, (Reported) Entered as Reported by: MARLA ROUSE on 06/26/21 142 Empagliflozin (Jardiance) 25 Mg Tablet, 12.5 MG PO DAILY, (Reported) Entered as Reported by: MARLA ROUSE on 06/26/211424 Insulin Aspart (Insulin Aspart Flexpen) 100 Unit/1 Ml Insuln.pen, 10 UNIT SQ QID W/MEALS Prescribed by: DAVON RHODES on 06/28/21903 Insulin Glargine,Hum.rec.anlog (Lantus Solostar) 100 Unit/1 Ml Insuln.pen, 30 UN IT SQ HS Prescribed by: DAVON RHODES on 06/28/21903 Losartan Potassium (Losartan Potassium) 25 Mg Tablet, 25 MG PO DAILY, (Reported) Entered as Reported by: MARLA ROUSE on 06/26/21 142 Metformin HCl (Metformin HCl ER) 500 Mg Tab.er.24, 1,000 MG PO BID, (Reported) Entered as Reported by: MARLA ROUSE on 06/26/211424 Olanzapine (Olanzapine) 5 Mg Tablet, 5 MG PO HS, (Reported) Entered as Reported by: MARLA ROUSE on 06/26/211424 Review of Systems Constitutional: No chills, No malaise, No weakness EENTM: No ear discharge, No ear pain Respiratory: No cough, No short of breath Cardiovascular: No chest pain, No edema Gastrointestinal: No abdominal pain, No constipation, No diarrhea, No nausea Musculoskeletal: No back pain, No gout Skin: No change in color, No pruritus Psychiatric/Neurological: Denies Anxiety, Denies Depressed All Other Systems Reviewed Negative Unless Noted: Yes Past Lkuztrd-Wwmiux-Nubtje Hx Patient Social History Tobacco Use?: Yes Tobacco type used: Cigars (Cigarillos) Smoking Status: Current Someday Smoker Use of E-Cig and/or Vaping dev: No Substance use?: Yes Substance type: Misuse of prescript meds, Other (Cocaine) Substance frequency: Once in a while Alcohol Use?: No Immunizations Up To Date Second COVID19 Vaccination King: 02/08 COVID19 Vaccine Trauma Manager: UNKNOWN Past Medical History High Cholesterol, Hypertension Diabetes, Insulin dep Family Medical History No Pertinent Family Hx Physical Exam Vital Signs - First Documented 10/07/21 14:41 Temp 36.3 Pulse 88 Resp 16 B/P (MAP) 131/109 (116) Pulse Ox 97 O2 Delivery Room Air Capillary Refill : Less Than 3 Seconds Height, Weight, BMI Height: '" Weight: lbs. oz. kg; 34.00 BMI Method: General Appearance: WD/WN, mild distress HEENT: PERRL/EOMI, pharynx normal Neck: full range of motion, normal inspection Respiratory: chest non-tender, lungs clear, normal breath sounds, no respiratory distress, no accessory muscle use Cardiovascular: normal peripheral pulses, regular rate, rhythm Gastrointestinal: normal bowel sounds, non tender, soft Extremities: non-tender, normal capillary refill Neurologic/Psychiatric: alert, oriented x 3, other (Anxious affect.) Appearance/Memory: appropriate appearance, no memory impairment Behavior/Eye Contact: cooperative, normal speech, avoids eye contact Thoughts/Hallucinations: normal thought pattern, no apparent hallucination, other (Denies homicidal ideation. Endorses suicidal ideation.) Skin: normal color, warm/dry Progress/Results/Core Measures Results/Orders Lab Results Laboratory Tests Test 11/17/21 14:51 Range/Units Glucometer 78 70-110 MG/DL My Orders Orders - SOLE COLON Ua Culture If Indicated (10/07/21 14:54) Cbc With Automated Diff (10/07/21 14:54) Comprehensive Metabolic Panel (10/07/21 14:54) Alcohol (10/07/21 14:54) Drug Screen Stat (Urine) (10/07/21 14:54) Acetaminophen (10/07/21 14:54) Salicylate (10/07/21 14:54) Ekg Tracing (10/07/21 14:54) Ed Iv/Invasive Line Start (10/07/21 14:54) Monitor-Rhythm Ecg Trace Only (10/07/21 14:54) Bh Status Checks/Observation Q15M (10/07/21 14:54) Ed Iv/Invasive Line Start (10/07/21 14:54) Accucheck Stat ONCE (10/07/21 14:54) Accucheck Stat ONCE (10/07/21 14:54) General/Regular (10/07/21 Lunch) Vital Signs/I&O 10/07/21 14:41 Temp 36.3 Pulse 88 Resp 16 B/P (MAP) 131/109 (116) Pulse Ox 97 O2 Delivery Room Air Blood Pressure Mean: 116 Progress Progress Note : Time: 15:15 Progress Note He is likely going to need an observation to medically clear him. Going to get him something to eat and continue to recheck his blood sugar on a strict schedule for now. Plan to get some labs. Poison control recommends that Ozempic has limited information but would expect an increase affect such as abdominal pain, shaking headache nausea vomiting all of which can be treated with symptomatic support. Would not expect it to add to the hypoglycemic effect of insulin. Initial ECG Impression Date: Oct 07, 2021 Initial ECG Impression Time: 15:03 Initial ECG Rate: 82 Initial ECG Rhythm: Normal Sinus Initial ECG Intervals: QT (476) Initial ECG Impression: Normal Comment Normal sinus rhythm without clinically relevant ST elevation or depression. Departure Impression Primary Impression: Suicide attempt Additional Impression: Insulin overdose Qualified Codes: T38.3X2A - Poisoning by insulin and oral hypoglycemic [antidiabetic] drugs, intentional self-harm, initial encounter Disposition: 01 HOME, SELF-CARE Condition: Stable Admissions Decision to Admit Reason: Admit from ER (General) Decision to Admit/Date: Oct 07, 2021 Time/Decision to Admit Time: 15:25 SOLE COLON Oct 07, 2021 15:13
[2021-10-07 15:20] LABS: BASOPHILS % (AUTO) 0 % (0-10); EOSINOPHILS # (AUTO) 0.4 10^3/uL (0.0-0.3); EOSINOPHILS % (AUTO) 5 % (0-10); HEMATOCRIT 43 % (40-54); LYMPHOCYTES # (AUTO) 1.3 10^3/uL (1.0-4.0); LYMPHOCYTES % (AUTO) 15 % (12-44); MEAN CORPUSCULAR HEMOGLOBIN 29 pg (25-34); MEAN CORPUSCULAR HGB CONC 35 g/dL (32-36); MEAN CORPUSCULAR VOLUME 84 fL (80-99); MEAN PLATELET VOLUME 10.9 fL (9.0-12.2); MONOCYTES # (AUTO) 0.8 10^3/uL (0.0-1.0); MONOCYTES % (AUTO) 9 % (0-12); NEUTROPHILS # (AUTO) 5.9 10^3/uL (1.8-7.8); NEUTROPHILS % (AUTO) 69 % (42-75); PLATELET COUNT 215 10^3/uL (130-400); WHITE BLOOD COUNT 8.6 10^3/uL (4.3-11.0)
[2021-10-07 15:21] LABS: BILIRUBIN,URINE NEGATIVE (NEGATIVE); CLARITY,URINE CLEAR; COLOR,URINE YELLOW; GLUCOSE, URINE (UA) TRACE (NEGATIVE); KETONES,URINE NEGATIVE (NEGATIVE); LEUKOCYTE ESTERASE ,URINE NEGATIVE (NEGATIVE); NITRITE,URINE NEGATIVE (NEGATIVE); PH,URINE 6.5 (5-9); PROTEIN,URINE TRACE (NEGATIVE)
[2021-10-07 15:29] LABS: BACTERIA,URINE NEGATIVE /HPF; WBC,URINE RARE /HPF
[2021-10-07 15:32] LABS: AMPHETAMINE SCREEN, URINE NEGATIVE (NEGATIVE); BARBITURATE SCREEN URINE NEGATIVE (NEGATIVE); BENZODIAZEPINES SCREEN URINE NEGATIVE (NEGATIVE); CANNABINOID SCREEN, URINE NEGATIVE (NEGATIVE); COCAINE SCREEN URINE NEGATIVE (NEGATIVE); METHADONE STAT NEGATIVE (NEGATIVE); METHAMPHETAMINE SCREEN URINE S NEGATIVE (NEGATIVE); OPIATE SCREEN URINE NEGATIVE (NEGATIVE); OXYCODONE STAT NEGATIVE (NEGATIVE); PROPOXYPHENE STAT NEGATIVE (NEGATIVE); TRICYCLIC ANTIDEPRESSANTS SCRE NEGATIVE (NEGATIVE)
[2021-10-07 15:38] LABS: ALBUMIN 4.1 GM/DL (3.2-4.5); CHLORIDE 108 MMOL/L (98-107); POTASSIUM 3.6 MMOL/L (3.6-5.0); SODIUM 139 MMOL/L (135-145)
[2021-10-07 15:40] LABS: GLUCOSE 73 MG/DL (70-105)
[2021-10-07 15:41] LABS: CARBON DIOXIDE 21 MMOL/L (21-32); TOTAL PROTEIN 6.6 GM/DL (6.4-8.2)
[2021-10-07 15:42] LABS: BILIRUBIN,TOTAL 1.8 MG/DL (0.1-1.0)
[2021-10-07 15:44] LABS: ALKALINE PHOSPHATASE 61 U/L (40-136); GFR ESTIMATED 120
[2021-10-07 15:46] LABS: BUN/CREATININE RATIO 9
[2021-10-07 15:47] LABS: ALANINE AMINOTRANSFERASE 43 U/L (0-55); SALICYLATE < 5.0 MG/DL (5.0-20.0)
[2021-10-07 15:49] LABS: ACETAMINOPHEN < 10 UG/ML (10-30)
[2021-10-07] MEDS ORDERED: LORazepam 0.5 MG (ATIVAN) TABLET PO STA (15:49)
[2021-10-07] MEDS ORDERED: D5 NS W/KCL 20 MEQ/L 1,000 ML IV SCH ×2 (16:00→18:15)
[2021-10-07] MEDS ORDERED: POTASSIUM CHLORIDE INJ 20 MEQ in D5 NS 1000 ML IV SOLUTION 1,000 ML IV SCH (16:00)
[2021-10-07 17:35] VITALS: BP 116/68
--- NOTE | 2021-10-07 17:58 | Tele-ICU Progress Note ---
Progress Note NO TELE-ICU CONSULT REQUESTED CONTINUE TO MONITOR PER USUAL TELE-ICU PROTOCOL Available charting reviewed. Now in ICU, hemodynamically stable Video assessment done, discussed with RN A/P OD with insulin products, DM ( typically uses 75 units a day +40 units of Lantus qhs ) has been injecting 300 units of NovoLog daily- 125 units this morning took his whole months worth of Ozempic on Tuesday, 4 doses in er - Initial blood sugar was in the 80s - dextrose started , follow accuchecks - poison control contacted Suicide attempt -history of major depression, PTSD - sitter , psych consult No need for Tele-ICU interventions now Bedside physicians on case to be updated by bedside RN Plans as delineated by bedside physicians / consultants mentioned above Discussed with RN to reach out if any questions or concerns Focused Exam Height, Weight, BMI Height: '" Weight: lbs. oz. kg; 34.25 BMI Method: HUGH PRICE MD Oct 07, 2021 17:58
[2021-10-07] MEDS ORDERED: ONDANSETRON 4 MG/2 ML (SDV) Z0FRAN IV PRN (18:15)
[2021-10-07] MEDS ORDERED: CATHETER FLUSH 10 ML SYR IV PRN (18:15)
[2021-10-07] MEDS ORDERED: PROMETHAZINE INJ 25 MG/ML (PHENERGAN) AMP IV PRN (18:15)
[2021-10-07] MEDS ORDERED: FLU QUADRIvalent (3YOA+) 60 mcg/0.5 ml 2021-22(AFLURIA) IM ONE (19:15)
[2021-10-07] MEDS ORDERED: ACETAMINOPHEN 500 MG TAB (TYLENOL) PO PRN (20:30)
[2021-10-07] MEDS ORDERED: GABAPENTIN 100 MG (NEURONTIN) CAP PO ONE (20:30)
[2021-10-07] MEDS ORDERED: METHYL SALICYLATE/MENTHOL (BENGAY, MUSCLE RUB) 3 OZ TUBE TP PRN (20:30)
[2021-10-07] MEDS ORDERED: ACETAMINOPHEN 500 MG TAB (TYLENOL) ONE (20:42)
[2021-10-07] MEDS ORDERED: GABAPENTIN 100 MG (NEURONTIN) CAP ONE (20:48)
[2021-10-07] MEDS: LORazepam 0.5 MG (ATIVAN) TABLET PO PRN (20:50)
[2021-10-07] MEDS ORDERED: GABAPENTIN 100 MG (NEURONTIN) CAP PO NR (21:30)
--- NOTE | 2021-10-07 22:00 | History & Physical-Hospitalist ---
History of Present Illness HPI/Chief Complaint Juan Gonzalez is a 46 year old male with PMH HTN, HLD, T2DM on insulin, depression, substance abuse, who presented with an intentional overdose of insulin. He had been taking increasing amounts of insulin recently in an attempt to harm himself. He says that he had been looking up ways to kill himself. He denies ever trying this before. He has attempted suicide in the past. He has been admitted to inpatient psychiatry. He wants to go to an inpatient treatment facility at this time. Source: patient Exam Limitations: no limitations Date Seen 10/07/21 Time Seen by a Provider: 17:45 Attending Physician Davon Rhodes MD PCP No,Local Physician Referring Physician Date of Admission Oct 07, 2021 at 15:30 Home Medications & Allergies Home Medications Reviewed patient Home Medication Reconciliation performed by pharmacy medication reconciliations ground source heat pump technician and/or nursing. Patients Allergies have been reviewed. Allergies Allergies Coded Allergies No Known Drug Allergies (Unverified06/25/21) Past Mfpokps-Lkicot-Vwpsep Hx Patient Social History Tobacco Use?: Yes Tobacco type used: Cigars (Cigarillos) Smoking Status: Current Someday Smoker Smokeless Tobacco Frequency: Light User Use of E-Cig and/or Vaping dev: No Substance use?: No Substance type: Misuse of prescript meds, Other (Cocaine) Substance frequency: Once in a while Alcohol Use?: No Pt feels they are or have been: Yes Immunizations Up To Date First/Initial COVID19 Vaccinat: 02/08 Second COVID19 Vaccination King: 02/08 Current Status Advance Directives: No Primary Language: German Preferred Spoken Language: German Sensory deficits: Hearing impairment Implanted or Applied Medical D: None Past Medical History High Cholesterol, Hypertension Diabetes, Insulin dep Family Medical History No Pertinent Family Hx Review of Systems Constitutional: no symptoms reported EENTM: no symptoms reported Respiratory: no symptoms reported Cardiovascular: no symptoms reported Gastrointestinal: no symptoms reported Genitourinary: no symptoms reported Musculoskeletal: no symptoms reported Skin: no symptoms reported Psychiatric/Neurological: Depressed Physical Exam Physical Exam Vital Signs Vital Signs - First Documented 10/07/21 14:41 Temp 36.3 Pulse 88 Resp 16 B/P (MAP) 131/109 (116) Pulse Ox 97 O2 Delivery Room Air Capillary Refill : Less Than 3 Seconds Height, Weight, BMI Height: '" Weight: lbs. oz. kg; 34.25 BMI Method: General Appearance: No Apparent Distress, Obese HEENT: PERRL/EOMI, Pharynx Normal Neck: Normal Inspection, Supple Respiratory: Lungs Clear, Normal Breath Sounds, No Respiratory Distress Cardiovascular: Regular Rate, Rhythm, No Edema, No Murmur Gastrointestinal: Normal Bowel Sounds, Non Tender, Soft Extremity: Normal Inspection, Non Tender, No Pedal Edema Neurologic/Psychiatric: Alert, Oriented x3, No Motor/Sensory Deficits, Depressed Affect Skin: Normal Color, Warm/Dry Results Results/Procedures Labs Laboratory Tests 10/07/21 15:10 Patient resulted labs reviewed. Assessment/Plan Admission Diagnosis Insulin overdose Admission Status: Observation Assessment and Plan Insulin overdose Suicide attempt T2DM HTN HLD Obesity Monitor blood sugar Give dextrose containing fluids as needed Hold insulin Suicide precautions Consult social work for psych placement Diagnosis/Problems Diagnosis/Problems (1) Insulin overdose Status: Acute Qualifiers: Encounter type: initial encounter Injury intent: intentional self-harm Qualified Codes: T38.3X2A - Poisoning by insulin and oral hypoglycemic [antidiabetic] drugs, intentional self-harm, initial encounter (2) Suicide attempt Status: Acute DAVON RHODES MD Oct 07, 2021 22:00
[2021-10-07] MEDS ORDERED: morphine INJ 10 MG/ML 1ML (SYR OR VIAL) IVP STA (22:21)
[2021-10-07] MEDS ORDERED: morphine INJ 4 MG/ML 1 ML (VIAL/SYRINGE) ONE (22:29)
[2021-10-07] MEDS: IBUPROFEN 800 MG (MOTRIN) TAB PO SCH (22:31)
[2021-10-07] MEDS: MELATONIN 3 MG TABLET PO SCH (22:32)
[2021-10-08] MEDS: MELATONIN 3 MG TABLET PO SCH (01:58)
[2021-10-08] MEDS: HYDROcodone/APAP 5 MG/325 MG (LORTAB) TAB PO PRN ×3 (01:58→14:40)
[2021-10-08 04:43] LABS: BASOPHILS # (AUTO) 0.1 10^3/uL (0.0-0.1); BASOPHILS % (AUTO) 1 % (0-10); EOSINOPHILS # (AUTO) 0.9 10^3/uL (0.0-0.3); EOSINOPHILS % (AUTO) 12 % (0-10); HEMATOCRIT 43 % (40-54); HEMOGLOBIN 14.3 g/dL (13.3-17.7); LYMPHOCYTES # (AUTO) 1.8 10^3/uL (1.0-4.0); LYMPHOCYTES % (AUTO) 23 % (12-44); MEAN CORPUSCULAR HEMOGLOBIN 29 pg (25-34); MEAN CORPUSCULAR HGB CONC 33 g/dL (32-36); MEAN CORPUSCULAR VOLUME 87 fL (80-99); MEAN PLATELET VOLUME 11.1 fL (9.0-12.2); MONOCYTES # (AUTO) 0.8 10^3/uL (0.0-1.0); MONOCYTES % (AUTO) 10 % (0-12); NEUTROPHILS # (AUTO) 4.4 10^3/uL (1.8-7.8); NEUTROPHILS % (AUTO) 55 % (42-75); PLATELET COUNT 189 10^3/uL (130-400)
[2021-10-08 05:12] LABS: POTASSIUM 4.1 MMOL/L (3.6-5.0)
[2021-10-08 05:13] LABS: CALCIUM 8.9 MG/DL (8.5-10.1)
[2021-10-08 05:17] LABS: CREATININE SERUM 0.86 MG/DL (0.60-1.30)
[2021-10-08] MEDS: IBUPROFEN 800 MG (MOTRIN) TAB PO SCH ×2 (05:56→13:09)
[2021-10-08] MEDS: LORazepam 0.5 MG (ATIVAN) TABLET PO PRN ×2 (05:56→14:40)
--- NOTE | 2021-10-08 22:13 | Discharge Summary ---
Discharge Summary Hospital Course Problems/Dx: (1) Insulin overdose Status: Acute Qualifiers: Qualified Codes: T38.3X2A - Poisoning by insulin and oral hypoglycemic [antidiabetic] drugs, intentional self-harm, initial encounter (2) Suicide attempt Status: Acute Hospital Course Date of Admission: Oct 07, 2021 at 15:30 Admission Diagnosis : Family Physician/Provider: No,Local Physician Date of Discharge: 10/08/21 Discharge Diagnosis: [ ] Hospital Course: [ ] Labs and Pending Lab Test: Laboratory Tests 10/07/21 23:11: Glucometer 139H 10/08/21 00:14: Glucometer 116H 10/08/21 01:10: Glucometer 117H 10/08/21 02:00: Glucometer 118H 10/08/21 03:17: Glucometer 146H 10/08/21 04:09: Glucometer 133H 10/08/21 04:27: White Blood Count 8.0, Red Blood Count 4.91, Hemoglobin 14.3, Hematocrit 43, Mean Corpuscular Volume 87, Mean Corpuscular Hemoglobin 29, Mean Corpuscular Hemoglobin Concent 33, Red Cell Distribution Width 14.2, Platelet Count 189, Mean Platelet Volume 11.1, Immature Granulocyte % (Auto) 0, Neutrophils (%) (Auto) 55, Lymphocytes (%) (Auto) 23, Monocytes (%) (Auto) 10, Eosinophils (%) (Auto) 12H, Basophils (%) (Auto) 1, Neutrophils # (Auto) 4.4, Lymphocytes # (Auto) 1.8, Monocytes # (Auto) 0.8, Eosinophils # (Auto) 0.9H, Basophils # (Auto) 0.1, Immature Granulocyte # (Auto) 0.0, Sodium Level 139, Potassium Level 4.1, Chloride Level 106, Carbon Dioxide Level 23, Anion Gap 10, Blood Urea Nitrogen 8, Creatinine 0.86, Estimat Glomerular Filtration Rate 95, BUN/Creatinine Ratio 9, Glucose Level 117H, Calcium Level 8.9 10/08/21 05:58: Glucometer 133H 10/08/21 07:00: Glucometer 122H 10/08/21 07:57: Glucometer 105 10/08/21 12:00: Glucometer 116H Microbiology 10/07/21 MRSA Screen - Final, Complete MRSA not isolated Home Meds Active Insulin Aspart Flexpen (Insulin Aspart) 100 Unit/1 Ml Insuln.pen 10 Unit SQ QID W/MEALS 30 Days Lantus Solostar (Insulin Glargine,Hum.rec.anlog) 100 Unit/1 Ml Insuln.pen 30 Unit SQ HS 30 Days Reported Atorvastatin Calcium 80 Mg Tablet 40 Mg PO HS TAKE OF A 80MG TAB Olanzapine 5 Mg Tablet 5 Mg PO HS Carvedilol 6.25 Mg Tablet 6.125 Mg PO BID Metformin HCl ER (Metformin HCl) 500 Mg Tab.er.24 1,000 Mg PO BID TAKE 2 (500MG) TABS Aspirin EC (Aspirin) 81 Mg Tablet.dr 81 Mg PO DAILY Losartan Potassium 25 Mg Tablet 25 Mg PO DAILY Jardiance (Empagliflozin) 25 Mg Tablet 12.5 Mg PO DAILY TAKE OF A 25MG TAB Assessment/Pt Instructions Transferred to psych facility Discharge Planning: <30 minutes discharge planning Discharge Instructions Discharge Diet: ADA Diet Activity as Tolerated: Yes Discharge Physical Examination Vital Signs Vital Signs Date Time Temp Pulse Resp B/P (MAP) Pulse Ox O2 Delivery O2 Flow Rate FiO2 10/08/21 13:00 80 10/08/21 13:00 6 96 Room Air 10/08/21 12:00 36.4 Allergies: Coded Allergies: No Known Drug Allergies (Unverified , 06/25/21) Discharge Summary Date of Admission Oct 07, 2021 at 15:30 Date of Discharge Oct 08, 2021 at 14:40 Discharge Date: Oct 08, 2021 Discharge Time: 14:40 Admission Diagnosis Insulin overdose Discharge Diagnosis Insulin overdose Suicide attempt (1) Insulin overdose Status: Acute Qualifiers: Qualified Codes: T38.3X2A - Poisoning by insulin and oral hypoglycemic [antidiabetic] drugs, intentional self-harm, initial encounter (2) Suicide attempt Status: Acute DAVON RHODES MD Oct 08, 2021 22:13
--- OUTSIDE RECORDS SUMMARY | 2021-10-12 10:08 | XMS REPORT | Clinical Summary ---
Author Author [facility] Address Unknown Phone Unavailable Care Team Providers Care Manager Library Name Role Phone Provider, Notinsystem MODEL USER PCP Unavail able Allergies No known active allergies Medications End Date Status Medication Sig Dispensed Refills Start Date Active empagliflozin (JARDIANCE) Take 12.5 mg 0 12.5 MG by mouth daily. Active metFORMIN (GLUCOPHAGE) Take 1,000 mg 0 1000 MG tablet by mouth 2 (two) times daily with meals. Active semaglutide,0.25 or Inject 0.5 mg 0 0.5MG/DOSE, (OZEMPIC, into the skin 0.25 OR 0.5 MG/DOSE,) 2 every 7 days. MG/1.5ML injection On Mondays Active atorvastatin (LIPITOR) 40 Take 40 mg by 0 MG tablet mouth at bedtime. Active carvedilol (COREG) 3.125 Take 3.125 mg 0 MG tablet by mouth in the morning and at bedtime. Active Vitamin D, Take 3 0 Cholecalciferol, 25 MCG tablets by (1000 UT) TABS mouth. Active QUEtiapine (SEROQUEL XR) Take 2 60 tablet 0 0 50 MG 24 hr tablets (100 1 tabletIndications: Major mg total) by Depressive Disorder mouth every evening. Indications: Major Depressive Disorder Active insulin glargine (LANTUS Inject 20 15 mL 0 0 SOLOSTAR) 100 UNIT/ML pen units tonight 1 injectionIndications: and then Controlled type 2 resume 40 diabetes mellitus with units at hyperglycemia, with bedtime long-term current use of starting insulin (HCC) tomorrow. Active insulin aspart (NOVOLOG Inject 0.28 15 mL 0 FLEXPEN) 100 UNIT/ML pen mLs (28 Units 1 injectionIndications: total) into Controlled type 2 the skin 3 diabetes mellitus with (three) times hyperglycemia, with daily before long-term current use of meals. insulin (HCC) Active Problems Problem Noted Date Primary hypertension 06/29/2021 Controlled type 2 diabetes mellitus with hyperglycemi a, with long-term 06/29/2021 current use of insulin Mixed hyperlipidemia 06/29/2021 Sinus tachycardia 06/29/2021 Chronic midline low back pain without sciatica 06/29 DERRICK (obstructive sleep apnea) 06/29/2021 Cocaine use disorder, severe, dependence 06/29/2021 Alcohol use disorder, moderate, dependence Psychophysiological insomnia 06/29/2021 Severe episode of recurrent major depressive disorder , without psychotic 06/29/2021 features TIFFANIE (generalized anxiety disorder) 06/29/2021 PTSD (post-traumatic stress disorder) 06/29/2021 Suicidal ideation 06/28/2021 Immunizations Name Administration Dates Next Due Pneumococcal 07/01/2021 (Deferred: Angelae nt Refused) Polysaccharide (23-valent) Social History Date Tobacco Use Types Packs/Day Years Used Never Smoker Smokeless Tobacco: Never Used Comments Alcohol Use Standard Drinks/Week Yes 6 (1 standard drink = 0.6 o z pure alcohol) Alcohol Habits Answer Date Recorded How often do you have a drink containing alcohol? 4 or mor e times a week 06/29/2021 How many drinks containing alcohol do you have on 5 or 6 06/29/2021 a typical day when you are drinking? How often do you have six or more drinks on one Never 06/29/2021 occasion? Comment: Not asked Social Isolation Answer Date Recorded In a typical week, how many times do you talk on Never 06/29/2021 the phone with family, friends, or neig hbors? How often do you get together with friends or Never 06/29/2021 relatives? How often do you attend yazdanism or mu-ism Never 06/29/2021 services? Do you belong to any clubs or organizations such No 06/29/2021 as yazdanism groups, unions, fraternal or athletic groups, or school groups? How often do you attend meetings of the clubs or Not asked organizations you belong to? Are you now , , , , Never m arried 06/29/2021 never or living with a partner? Physical Activity Answer Date Recorded On average, how many days per week do you engage 0 days 06/29/2021 in moderate to strenuous exercise (like walking fast, running, jogging, dancing, swimmi ng, biking, or other activities that cause a light or heavy sweat)? On average, how many minutes do you engage in 0 min 06/29/2021 exercise at this level? Stress Answer Date Recorded Do you feel stress - tense, restless, nervous, or Very muc h 06/29/2021 anxious, or unable to sleep at night be cause your mind is troubled all the time - these d ays? Financial Resource Strain Answer Date Recorde d How hard is it for you to pay for the very basics Not hard at all 06/29/2021 like food, housing, medical care, and h eating? Intimate Partner Violence Answer Date Recorde d Within the last year, have you been afraid of your No 06/29/2021 partner or ex-partner? Within the last year, have you been humiliated or No 06/29/2021 emotionally abused in other ways by you r partner or ex-partner? Within the last year, have you been kicked, hit, No 06/29/2021 slapped, or otherwise physically hurt b y your partner or ex-partner? Within the last year, have you been raped or No 06/29/2021 forced to have any kind of sexual activ ity by your partner or ex-partner? Food Insecurity Answer Date Recorded Within the past 12 months, you worried that your Never dorinda e 06/29/2021 food would run out before you got money to buy more. Within the past 12 months, the food you bought Never true 06/29/2021 just didn't last and you didn't have mo anna to get more. Transportation Needs Answer Date Recorded In the past 12 months, has lack of transportation No 06/29/2021 kept you from medical appointments or f rom getting medications? In the past 12 months, has lack of transportation No 06/29/2021 kept you from meetings, work, or gettin g things needed for daily living? Housing Stability Answer Date Recorded In the last 12 months, was there a time when you No 06/29/2021 were not able to pay the mortgage or re nt on time? In the last 12 months, how many places have you 2 06/29/2021 lived? In the last 12 months, was there a time when you No 06/29/2021 did not have a steady place to sleep or slept in a fdc (including now)? Control Partners Comments Sexually Active Not Currently Sex Assigned at Date Recorded Not on file Last Filed Vital Signs Reading Time Taken Comments Vital Sign 138/89 06/30/2021 8:48 PM CDT Blood Pressure 100 06/30/2021 8:48 PM CDT Pulse 36.6 C (97.9 F) 06/30/2021 8:48 PM CDT Temperature 18 06/30/2021 8:48 PM CDT Respiratory Rate 100% 06/30/2021 8:48 PM CDT Oxygen Saturation - - Inhaled Oxygen Concentration 95.3 kg (210 lb) 06/28/2021 5:29 PM CDT Weight 170.2 cm (5' 7") 06/28/2021 5:29 PM CDT Height 32.89 06/28/2021 5:29 PM CDT Body Mass Index Plan of Treatment Health Maintenance Due Date Last Done Comments Varicella Vaccines (1 of 1974 2 - 2-dose childhood series) COVID-19 Vaccine (1) 1978 Pneumo-Vaccine: 65+Yrs (1 1979 of 2 - PPSV23) Pneumo-Vaccine: Peds (0-5 1979 Yrs) & At-Risk Patients (6-64 Yrs) (1 of 2 - PPSV23) Diabetic Eye Exam 1983 Diabetic Foot Exam 1983 Hepatitis C Screening 1991 Urine Microalbumin 1991 DTaP,Tdap,and Td Vaccines 1992 (1 - Tdap) MMR Vaccines-Adult 1992 Influenza Vaccine (#1) 2021 Diabetic A1C Due 12/30/2021 06/29/2021 HIB Vaccines Aged Out No longer eligible based on patient's age to complete this topic IPV Vaccines Aged Out No longer eligible based on patient's age to complete this topic Meningococcal Vaccine Aged Out No longer eligib le based on patient's age to complete this topic Rotavirus Vaccines Aged Out No longer eligible based on patient's age to complete this topic Results Not on filefrom Last 3 Months Insurance Type Payer Benefit Subscriber ID Effective Phone Address Plan / Dates Group [facility] [id number] 2021-P [phone] [address] [place] [id number] [facility] [id number] 2021-P 11 PC SS UNAUTHORIZ resent [address] [place] [id number] Advance Directives For more information, please contact: [phone] Patient Csr Explanation Type Date Recorded Advance Directives and Living Will Power of Mannequin Refinisher Date Inactivated Comments Code Status Date Activated Full Code 07/01/2021 12:12 PM 07/01/2021 12:12 PM Full Code 06/28/2021 5:56 PM Care Teams Start Date End Date Manager Library Relationship Specialty 06/28/21 Provider, Man, PCP - General MODEL USER [place]
== END 2021-10-08 14:40 ==
LOC: EDUNIT# 14:41 → ER 14:43 → ICU 15:30
PROVIDERS: ADMIT Internal Medicine; ATTEND Internal Medicine
DX: T38.3X2A Poisoning by insulin and oral hypoglycemic [antidiabetic] drugs, intentional self-harm, initial encounter (principal); I10 Essential (primary) hypertension; E78.5 Hyperlipidemia, unspecified; E11.9 Type 2 diabetes mellitus without complications; F32.A Depression, unspecified; F17.210 Nicotine dependence, cigarettes, uncomplicated; E78.00 Pure hypercholesterolemia, unspecified; E66.9 Obesity, unspecified; F43.10 Post-traumatic stress disorder, unspecified; Z79.4 Long term (current) use of insulin; Z79.899 Other long term (current) drug therapy; Z79.84 Long term (current) use of oral hypoglycemic drugs; Z79.82 Long term (current) use of aspirin; Z68.34 Body mass index [BMI] 34.0-34.9, adult
CPT/HCPCS: 36415; 80048; 80053; 80306; 80320; 80329; 81000; 82947; 83735; 85025; 87081; 87636; 93005; 93041; G0378

== ENCOUNTER 2022-04-11 21:28 | Emergency (ER) | payer OTHER ==
[2022-04-11] MEDS ORDERED: NS IV 1000 ML 1,000 ML IV STA ×2 (21:48→22:40)
[2022-04-11 21:54] LABS: BILIRUBIN,URINE NEGATIVE (NEGATIVE); CLARITY,URINE CLEAR; COLOR,URINE YELLOW; GLUCOSE, URINE (UA) 3+ (NEGATIVE); KETONES,URINE NEGATIVE (NEGATIVE); LEUKOCYTE ESTERASE ,URINE NEGATIVE (NEGATIVE); NITRITE,URINE NEGATIVE (NEGATIVE); PH,URINE 6.5 (5-9); PROTEIN,URINE NEGATIVE (NEGATIVE)
[2022-04-11 21:56] LABS: BASOPHILS # (AUTO) 0.1 10^3/uL (0.0-0.1); BASOPHILS % (AUTO) 1 % (0-10); EOSINOPHILS # (AUTO) 0.4 10^3/uL (0.0-0.3); EOSINOPHILS % (AUTO) 5 % (0-10); HEMATOCRIT 45 % (40-54); HEMOGLOBIN 16.4 g/dL (13.3-17.7); LYMPHOCYTES # (AUTO) 1.8 10^3/uL (1.0-4.0); LYMPHOCYTES % (AUTO) 26 % (12-44); MEAN CORPUSCULAR HEMOGLOBIN 30 pg (25-34); MEAN CORPUSCULAR HGB CONC 36 g/dL (32-36); MEAN CORPUSCULAR VOLUME 81 fL (80-99); MEAN PLATELET VOLUME 12.2 fL (9.0-12.2); MONOCYTES # (AUTO) 0.5 10^3/uL (0.0-1.0); MONOCYTES % (AUTO) 7 % (0-12); NEUTROPHILS # (AUTO) 4.3 10^3/uL (1.8-7.8); NEUTROPHILS % (AUTO) 61 % (42-75); PLATELET COUNT 171 10^3/uL (130-400); WHITE BLOOD COUNT 7.1 10^3/uL (4.3-11.0)
--- NOTE | 2022-04-11 21:59 | ED General ---
General Stated Complaint: DIABETIC/HIGH BS 598 Source of Information: Patient Exam Limitations: No Limitations (AWA BLOOM) History of Present Illness Date Seen by Provider: April 11, 2022 Time Seen by Provider: 21:54 Initial Comments Patient is a 46-year-old male with a history of type 2 diabetes, hypertension, substance drug abuse who presents ED for elevated blood sugar. He states his blood sugar has been running as high as 598 at home for the past 2 days. His last read on his glucometer read high. He states he has been having increased thirst, increased urination with confusion and blurry vision over the past 2 days. States he is having numbness and tingling into his feet. He states his last A1c was 6.9. He was taken off his NovoLog a few months ago because his blood sugar was better controlled. He is currently on Lantus. Patient denies of any abdominal pain, chest pain, vomiting, diarrhea. No recent URI (AWA BLOOM) Allergies and Home Medications Allergies Coded Allergies: No Known Drug Allergies (Unverified , 06/25/21) Patient Home Medication List Home Medication List Reviewed: Yes (FARNAZ OREILLY MD) Aspirin (Aspirin EC) 81 Mg Tablet.dr, 81 MG PO DAILY, (Reported) Entered as Reported by: MARLA ROUSE on 06/26/21 142 Atorvastatin Calcium (Atorvastatin Calcium) 80 Mg Tablet, 40 MG PO HS, (Reported) Entered as Reported by: MARLA ROUSE on 06/26/21 142 Carvedilol (Carvedilol) 6.25 Mg Tablet, 6.125 MG PO BID, (Reported) Entered as Reported by: MARLA ROUSE on 06/26/21 142 Empagliflozin (Jardiance) 25 Mg Tablet, 12.5 MG PO DAILY, (Reported) Entered as Reported by: MARLA ROUSE on 06/26/21 142 Insulin Aspart (Insulin Aspart Flexpen) 100 Unit/1 Ml Insuln.pen, 10 UNIT SQ QID W/MEALS Prescribed by: DAVON RHODES on 06/28/21 0904 Insulin Glargine,Hum.rec.anlog (Lantus Solostar) 100 Unit/1 Ml Insuln.pen, 30 UNIT SQ HS Prescribed by: DAVON RHODES on 06/28/21 0904 Losartan Potassium (Losartan Potassium) 25 Mg Tablet, 25 MG PO DAILY, (Reported) Entered as Reported by: MARLA ROUSE on 06/26/21 142 Metformin HCl (Metformin HCl ER) 500 Mg Tab.er.24, 1,000 MG PO BID, (Reported) Entered as Reported by: MARLA ROUSE on 06/26/21 142 Olanzapine (Olanzapine) 5 Mg Tablet, 5 MG PO HS, (Reported) Entered as Reported by: MARLA ROUSE on 06/26/211424 Review of Systems Review of Systems Constitutional: No chills, No diaphoresis EENTM: blurred vision; No vision loss, No mouth swelling Respiratory: No cough, No dyspnea on exertion, No orthopnea Cardiovascular: No chest pain Gastrointestinal: No abdominal pain, No diarrhea, No nausea, No vomiting Genitourinary: No decreased output, No discharge; frequency Musculoskeletal: back pain; No joint pain Skin: No change in color, No change in hair/nails (AWA BLOOM) All Other Systems Reviewed Negative Unless Noted: Yes (AWA BLOOM) Past [place]-Oojzul Hx Immunizations Up To Date First/Initial COVID19 Vaccinat: 02/08 Second COVID19 Vaccination King: 02/08 Third COVID19 Vaccination Date: 02/08 (AWA BLOOM) Past Medical History High Cholesterol, Hypertension Diabetes, Insulin dep (AWA BLOOM) Family Medical History No Pertinent Family Hx (AWA BLOOM) Physical Exam Vital Signs Vital Signs - First Documented (FARNAZ OREILLY MD) Vital Signs Capillary Refill : (AWA BLOOM) Height, Weight, BMI Height: '" Weight: lbs. oz. kg; 34.25 BMI Method: General Appearance: No Apparent Distress, WD/WN Eyes: Bilateral Eye Normal Inspection, Bilateral Eye PERRL, Bilateral Eye EOMI HEENT: PERRL/EOMI, TMs Normal, Normal ENT Inspection, Pharynx Normal Neck: Full Range of Motion, Normal Inspection, Non Tender, Supple Respiratory: Chest Non Tender, Lungs Clear, Normal Breath Sounds, No Accessory Muscle Use, No Respiratory Distress Cardiovascular: Regular Rate, Rhythm, No Edema, No Gallop, No JVD Gastrointestinal: Normal Bowel Sounds, No Organomegaly, No Pulsatile Mass, Non Tender Back: Normal Inspection, No CVA Tenderness, No Vertebral Tenderness Extremity: Normal Capillary Refill, Normal Inspection, Normal Range of Motion, Non Tender Neurologic/Psychiatric: Alert, Oriented x3, No Motor/Sensory Deficits, 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, php consultant II-XII Norm as Tested Skin: Normal Color, Warm/Dry (AWA BLOOM) Progress/Results/Core Measures Suspected Sepsis SIRS Temperature: Pulse: Respiratory Rate: Laboratory Tests 04/11/22 21:50: White Blood Count 7.1 Blood Pressure / Mean: Laboratory Tests 04/11/22 21:50: Creatinine 1.34H, Platelet Count 171, Total Bilirubin 2.0H (AWA BLOOM) Results/Orders Lab Results Laboratory Tests Test 04/11/22 21:45 04/11/22 21:50 04/11/22 23:15 04/12/22 00:27 Range/Units Urine Color YELLOW Urine Clarity CLEAR Urine pH 6.5 5-9 Urine Specific [place] <=1.005 1.016-1.022 Urine Protein NEGATIVE NEGATIVE Urine Glucose (UA) 3+ H NEGATIVE Urine Ketones NEGATIVE NEGATIVE Urine Nitrite NEGATIVE NEGATIVE Urine Bilirubin NEGATIVE NEGATIVE Urine Urobilinogen 0.2 < = 1.0 MG/DL Urine Leukocyte Esterase NEGATIVE NEGATIVE Urine RBC (Auto) NEGATIVE NEGATIVE Urine RBC NONE /HPF Urine WBC NONE /HPF Urine Crystals NONE /LPF Urine Bacteria NEGATIVE /HPF Urine Casts NONE /LPF Urine Mucus NEGATIVE /LPF Urine Culture Indicated NO White Blood Count 7.1 4.3-11.0 10^3/uL Red Blood Count 5.55 H 4.30-5.52 10^6/uL Hemoglobin 16.4 13.3-17.7 g/dL Hematocrit 45 40-54 % Mean Corpuscular Volume 81 80-99 fL Mean Corpuscular Hemoglobin 30 25-34 pg Mean Corpuscular Hemoglobin Concent 36 32-36 g/dL Red Cell Distribution Width 12.0 10.0-14.5 % Platelet Count 171 130-400 10^3/uL Mean Platelet Volume 12.2 9.0-12.2 fL Immature Granulocyte % (Auto) 0 % Neutrophils (%) (Auto) 61 42-75 % Lymphocytes (%) (Auto) 26 12-44 % Monocytes (%) (Auto) 7 0-12 % Eosinophils (%) (Auto) 5 0-10 % Basophils (%) (Auto) 1 0-10 % Neutrophils # (Auto) 4.3 1.8-7.8 10^3/uL Lymphocytes # (Auto) 1.8 1.0-4.0 10^3/uL Monocytes # (Auto) 0.5 0.0-1.0 10^3/uL Eosinophils # (Auto) 0.4 H 0.0-0.3 10^3/uL Basophils # (Auto) 0.1 0.0-0.1 10^3/uL Immature Granulocyte # (Auto) 0.0 0.0-0.1 10^3/uL Sodium Level 128 L 135-145 MMOL/L Potassium Level 3.8 3.6-5.0 MMOL/L Chloride Level 94 L 98-107 MMOL/L Carbon Dioxide Level 20 L 21-32 MMOL/L Anion Gap 14 5-14 MMOL/L Blood Urea Nitrogen 8 7-18 MG/DL Creatinine 1.34 H 0.60-1.30 MG/DL Estimat Glomerular Filtration Rate 65 BUN/Creatinine Ratio 6 Glucose Level 681 *H 70-105 MG/DL Calcium Level 9.3 8.5-10.1 MG/DL Corrected Calcium 9.0 8.5-10.1 MG/DL Magnesium Level 1.9 1.6-2.4 MG/DL Total Bilirubin 2.0 H 0.1-1.0 MG/DL Aspartate Amino Transf (AST/SGOT) 26 5-34 U/L Alanine Aminotransferase (ALT/SGPT) 36 0-55 U/L Alkaline Phosphatase 104 40-136 U/L Total Protein 7.1 6.4-8.2 GM/DL Albumin 4.4 3.2-4.5 GM/DL Beta-Hydroxybutyrate (Chem panel) 0.08 0.00-0.27 MMOL/L Glucometer 414 *H 309 H 70-110 MG/DL (FARNAZ OREILLY MD) My Orders Orders - FARNAZ OREILLY MD Accucheck Stat ONCE (04/11/22 23:11) Accucheck Stat ONCE (04/12/22 00:21) (FARNAZ OREILLY MD) Medications Given in ED Current Medications Medications Dose Ordered Sig/Ganesh Route Start Time Stop Time Status Last Admin Dose Admin Insulin Human Regular 10 unit ONCE ONCE IV 04/11/22 22:45 04/11/22 22:46 DC 04/11/22 22:42 10 UNIT (FARNAZ OREILLY MD) Vital Signs/I&O 04/11/22 04/11/22 04/12/22 21:45 21:45 00:50 Temp 36.0 36.0 Pulse 102 84 Resp 18 18 B/P (MAP) 141/97 (112) 135/92 Pulse Ox 97 95 O2 Delivery Room Air Room Air Room Air 04/12/22 00:00 Intake Total 1000 ml Balance 1000 ml (FARNAZ OREILLY MD) Vital Signs/I&O Capillary Refill : (AWA BLOOM) Progress Note #1: Time: 23:16 Progress Note accu check currently 414 Progress Note #2: Time: 00:38 Progress Note Blood sugar down to about 300 now. He feels much better. We talked about his anxiety and depression a little. He struggles with racing thought, passive SI and depression and insomnia. I suggested some meditation apps on his phone. I also [facility]. He has no thought of self harm right now. He feels better. He is stable for discharge. (FARNAZ OREILLY MD) Departure Communication (PCP) Patient initial blood sugar 681. Normal anion gap. Normal beta hydroxybutyrate. Patient does not appear in DKA. Patient states he was taken off his NovoLog about a few months ago. Patient likely will need adjustments to his medication. He is currently on Lantus. Reports some mild disorientation with frequent urination and dry mouth. Patient was started on a liter of fluid. Patient was given 10 units of regular insulin. Patient was given a second liter. Continue monitoring blood sugar here in the ER. Patient was discussed with Dr. Oreilly who took over care at 11 PM. 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 Decision time for Depature: 00:40 (FARNAZ OREILLY MD) Referrals: NO,LOCAL PHYSICIAN (PCP/Family) Primary Care Physician Patient Instructions: Type 2 Diabetes (DC) Add. Discharge Instructions: Continue your daily medications as prescribed and watch your carb intake. [facility]. Meditation apps (some free) may help with your racing thoughts and insomnia - apps such as "CALM", "HEADSPACE" and "THE MINDFULLNESS REECE". Return to the emergency department for any new, concerning or emergent complaints. AWA BLOOM April 11, 2022 21:59 FARNAZ OREILLY MD April 11, 2022 23:19
[2022-04-11 22:00] LABS: BACTERIA,URINE NEGATIVE /HPF
[2022-04-11 22:29] LABS: ALBUMIN 4.4 GM/DL (3.2-4.5); POTASSIUM 3.8 MMOL/L (3.6-5.0)
[2022-04-11 22:31] LABS: CALCIUM 9.3 MG/DL (8.5-10.1)
[2022-04-11 22:32] LABS: TOTAL PROTEIN 7.1 GM/DL (6.4-8.2)
[2022-04-11 22:36] LABS: CREATININE SERUM 1.34 MG/DL (0.60-1.30)
[2022-04-11 22:38] LABS: MAGNESIUM 1.9 MG/DL (1.6-2.4)
[2022-04-11] MEDS ORDERED: NS IV 1000 ML 1,000 ML ONE (22:41)
[2022-04-11] MEDS ORDERED: inSUlin (REGULAR) HUMAN 1 UNIT/0.01 ML (CHARGE PER UNIT) IV ONE (22:45)
[2022-04-12 00:50] VITALS: BP 135/92
== END 2022-04-12 00:50 | disposition home or self-care (01) ==
LOC: EDUNIT# 21:28 → ER 21:29
DX: E11.65 Type 2 diabetes mellitus with hyperglycemia (principal); Z79.4 Long term (current) use of insulin
CPT/HCPCS: 36415; 80053; 81000; 82010; 82947; 83735; 85025

== ENCOUNTER 2022-04-17 20:31 | Emergency (ER) | payer OTHER ==
[~2022-04-17] VITALS: Ht 172.7 cm; Wt 99.8 kg
[2022-04-17] MEDS ORDERED: NS IV 1000 ML 1,000 ML IV STA ×2 (20:44→21:13)
--- NOTE | 2022-04-17 20:48 | ED General ---
General Stated Complaint: HIGH BS Source of Information: Patient Exam Limitations: No Limitations History of Present Illness Date Seen by Provider: April 17, 2022 Time Seen by Provider: 20:46 Initial Comments Patient is a 46-year-old male who presents ED with increased thirst, high blood sugar and frequent urination. Symptoms over the past 2 days. History of type 2 diabetes. Currently on Lantus but was taken off of his NovoLog. Patient Was seen here on the for similar symptoms but without the confusion, blurry vision or numbness and tingling today. Patient reports diet changes. Has not follow-up with his primary care physician at this time to get his NovoLog. Denies of any vomiting, fever, chills, headache, dizziness. Requesting better improvement of his blood sugar. He states his glucometer read high at home today. Glucometer read over 600 yesterday Allergies and Home Medications Allergies Coded Allergies: No Known Drug Allergies (Unverified , 06/25/21) Patient Home Medication List Home Medication List Reviewed: Yes Aspirin (Aspirin EC) 81 Mg Tablet.dr, 81 MG PO DAILY, (Reported) Entered as Reported by: MARLA ROUSE on 06/26/21 1425 Atorvastatin Calcium (Atorvastatin Calcium) 80 Mg Tablet, 40 MG PO HS, (Reported) Entered as Reported by: MARLA ROUSE on 06/26/21 1425 Carvedilol (Carvedilol) 6.25 Mg Tablet, 6.125 MG PO BID, (Reported) Entered as Reported by: MARLA ROUSE on 06/26/21 1425 Empagliflozin (Jardiance) 25 Mg Tablet, 12.5 MG PO DAILY, (Reported) Entered as Reported by: MARLA ROUSE on 06/26/21 1425 Insulin Aspart (Insulin Aspart Flexpen) 100 Unit/1 Ml Insuln.pen, 10 UNIT SQ QID W/MEALS Prescribed by: DAVON RHODES on 06/28/21 0904 Insulin Aspart (Novolog Flexpen) 100 Unit/Ml (3 Ml) Solution, 25 UNITS SQ AC PRN for Before Meal Prescribed by: THANIA PARKER on 04/17/22 2200 Insulin Glargine,Hum.rec.anlog (Lantus Solostar) 100 Unit/1 Ml Insuln.pen, 30 UNIT SQ HS Prescribed by: DAVON RHODES on 06/28/21 0904 Losartan Potassium (Losartan Potassium) 25 Mg Tablet, 25 MG PO DAILY, (Reported) Entered as Reported by: MARLA ROUSE on 06/26/21 142 Metformin HCl (Metformin HCl ER) 500 Mg Tab.er.24, 1,000 MG PO BID, (Reported) Entered as Reported by: MARLA ROUSE on 06/26/21 142 Olanzapine (Olanzapine) 5 Mg Tablet, 5 MG PO HS, (Reported) Entered as Reported by: MARLA ROUSE on 06/26/211424 Review of Systems Review of Systems Constitutional: No chills, No diaphoresis, No malaise, No weakness EENTM: No blurred vision Respiratory: No cough, No dyspnea on exertion Cardiovascular: No chest pain Gastrointestinal: No abdominal pain, No diarrhea, No vomiting Genitourinary: No decreased output, No discharge Musculoskeletal: No back pain, No joint pain Skin: No change in color, No change in hair/nails All Other Systems Reviewed Negative Unless Noted: Yes Past Pnwcryb-Pzpwkg-Zwouzu Hx Immunizations Up To Date First/Initial COVID19 Vaccinat: 02/08 Second COVID19 Vaccination King: 02/08 Third COVID19 Vaccination Date: 02/08 Past Medical History High Cholesterol, Hypertension Diabetes, Insulin dep Family Medical History No Pertinent Family Hx Physical Exam Vital Signs Vital Signs - First Documented 04/17/22 20:40 Temp 36.4 Pulse 81 Resp 18 B/P (MAP) 184/104 (130) Pulse Ox 97 O2 Delivery Room Air Capillary Refill : Height, Weight, BMI Height: '" Weight: lbs. oz. kg; 34.25 BMI Method: General Appearance: No Apparent Distress, WD/WN Eyes: Bilateral Eye Normal Inspection, Bilateral Eye PERRL, Bilateral Eye EOMI HEENT: PERRL/EOMI, TMs Normal, Normal ENT Inspection, Pharynx Normal Neck: Full Range of Motion, Normal Inspection, Non Tender, Supple Respiratory: Chest Non Tender, Lungs Clear, Normal Breath Sounds, No Accessory Muscle Use, No Respiratory Distress Cardiovascular: Regular Rate, Rhythm, No Edema, No Gallop, No JVD, No Murmur Gastrointestinal: Normal Bowel Sounds, No Organomegaly, No Pulsatile Mass, Non Tender Back: Normal Inspection, No CVA Tenderness, No Vertebral Tenderness Extremity: Normal Capillary Refill, Normal Inspection Neurologic/Psychiatric: Alert, Oriented x3, No Motor/Sensory Deficits, 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, 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 as 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 Skin: Normal Color, Warm/Dry Progress/Results/Core Measures Suspected Sepsis SIRS Temperature: Pulse: Respiratory Rate: Laboratory Tests 04/17/22 20:46: White Blood Count 6.4 Blood Pressure / Mean: Laboratory Tests 04/17/22 20:46: Creatinine 1.42H, Platelet Count 161, Total Bilirubin 2.4H 04/17/22 22:16: Creatinine 0.91 Results/Orders Lab Results Laboratory Tests Test 04/17/22 20:46 04/17/22 21:22 04/17/22 22:16 Range/Units White Blood Count 6.4 4.3-11.0 10^3/uL Red Blood Count 5.30 4.30-5.52 10^6/uL Hemoglobin 15.6 13.3-17.7 g/dL Hematocrit 44 40-54 % Mean Corpuscular Volume 83 80-99 fL Mean Corpuscular Hemoglobin 29 25-34 pg Mean Corpuscular Hemoglobin Concent 36 32-36 g/dL Red Cell Distribution Width 12.3 10.0-14.5 % Platelet Count 161 130-400 10^3/uL Mean Platelet Volume 11.9 9.0-12.2 fL Immature Granulocyte % (Auto) 0 % Neutrophils (%) (Auto) 60 42-75 % Lymphocytes (%) (Auto) 25 12-44 % Monocytes (%) (Auto) 8 0-12 % Eosinophils (%) (Auto) 6 0-10 % Basophils (%) (Auto) 1 0-10 % Neutrophils # (Auto) 3.8 1.8-7.8 10^3/uL Lymphocytes # (Auto) 1.6 1.0-4.0 10^3/uL Monocytes # (Auto) 0.5 0.0-1.0 10^3/uL Eosinophils # (Auto) 0.4 H 0.0-0.3 10^3/uL Basophils # (Auto) 0.0 0.0-0.1 10^3/uL Immature Granulocyte # (Auto) 0.0 0.0-0.1 10^3/uL Sodium Level 126 L 135 135-145 MMOL/L Potassium Level 3.8 3.5 L 3.6-5.0 MMOL/L Chloride Level 93 L 104 98-107 MMOL/L Carbon Dioxide Level 19 L 18 L 21-32 MMOL/L Anion Gap 14 13 5-14 MMOL/L Blood Urea Nitrogen 9 8 7-18 MG/DL Creatinine 1.42 H 0.91 0.60-1.30 MG/DL Estimat Glomerular Filtration Rate 61 104 BUN/Creatinine Ratio 6 9 Glucose Level 796 *H 268 H 70-105 MG/DL Calcium Level 8.7 8.1 L 8.5-10.1 MG/DL Corrected Calcium 8.5 8.5-10.1 MG/DL Total Bilirubin 2.4 H 0.1-1.0 MG/DL Aspartate Amino Transf (AST/SGOT) 25 5-34 U/L Alanine Aminotransferase (ALT/SGPT) 44 0-55 U/L Alkaline Phosphatase 91 40-136 U/L Total Protein 6.8 6.4-8.2 GM/DL Albumin 4.2 3.2-4.5 GM/DL Beta-Hydroxybutyrate (Chem panel) 0.08 0.00-0.27 MMOL/L Urine Color YELLOW Urine Clarity CLEAR Urine pH 6.0 5-9 Urine Specific [place] <=1.005 1.016-1.022 Urine Protein NEGATIVE NEGATIVE Urine Glucose (UA) 3+ H NEGATIVE Urine Ketones NEGATIVE NEGATIVE Urine Nitrite NEGATIVE NEGATIVE Urine Bilirubin NEGATIVE NEGATIVE Urine Urobilinogen 0.2 < = 1.0 MG/DL Urine Leukocyte Esterase NEGATIVE NEGATIVE Urine RBC (Auto) NEGATIVE NEGATIVE Urine RBC NONE /HPF Urine WBC NONE /HPF Urine Squamous Epithelial Cells NONE /HPF Urine Crystals NONE /LPF Urine Bacteria NEGATIVE /HPF Urine Casts NONE /LPF Urine Mucus NEGATIVE /LPF Urine Culture Indicated NO Urine Opiates Screen NEGATIVE NEGATIVE Urine Oxycodone Screen NEGATIVE NEGATIVE Urine Methadone Screen NEGATIVE NEGATIVE Urine Propoxyphene Screen NEGATIVE NEGATIVE Urine Barbiturates Screen NEGATIVE NEGATIVE Ur Tricyclic Antidepressants Screen POSITIVE H NEGATIVE Urine Phencyclidine Screen NEGATIVE NEGATIVE Urine Amphetamines Screen NEGATIVE NEGATIVE Urine Methamphetamines Screen NEGATIVE NEGATIVE Urine Benzodiazepines Screen NEGATIVE NEGATIVE Urine Cocaine Screen NEGATIVE NEGATIVE Urine Cannabinoids Screen NEGATIVE NEGATIVE My Orders Orders - AWA BLOOM Accucheck Stat ONCE (04/17/22 20:33) Cbc With Automated Diff (04/17/22 20:44) Comprehensive Metabolic Panel (04/17/22 20:44) Beta Hydroxybutyrate (04/17/22 20:44) Ua Culture If Indicated (04/17/22 20:44) Drug Screen Stat (Urine) (04/17/22 20:44) Ns Iv 1000 Ml (Sodium Chloride 0.9%) (04/17/22 20:44) Iv/Invasive Line Insertion .IV start (04/17/22 20:45) Insulin (Regular) Human (Novolin R (Per (04/17/22 21:15) Ns Iv 1000 Ml (Sodium Chloride 0.9%) (04/17/22 21:13) Insulin (Regular) Human (Novolin R (Per (04/17/22 21:20) Ns Iv 1000 Ml (Sodium Chloride 0.9%) (04/17/22 21:20) Basic Metabolic Panel (04/17/22 22:16) Medications Given in ED Current Medications Medications Dose Ordered Sig/Ganesh Route Start Time Stop Time Status Last Admin Dose Admin Insulin Human Regular 10 unit ONCE ONCE IV 04/17/22 21:15 04/17/22 22:08 DC 04/17/22 21:21 10 UNIT Vital Signs/I&O 04/17/22 04/17/22 20:40 22:47 Temp 36.4 36.4 Pulse 81 82 Resp 18 18 B/P (MAP) 184/104 (130) 131/91 Pulse Ox 97 98 O2 Delivery Room Air Room Air Capillary Refill : Departure Communication (PCP) Patient presents ED with hyperglycemia. Blood sugar 796. Patient is not currently taking his NovoLog. He states he has been watching his diet which does not help with his blood sugar. Patient was seen here on the for hyperglycemia. Does not appear to be DKA. Patient is dehydrated was given 2 L of fluid. Slight change in kidney function of a creatinine of 1.42. Improvement of electrolytes and kidney function after fluids. Blood sugar 268 after fluids and 10 units of insulin. Provided a few days worth of NovoLog pen. States that do not typically prescribe NovoLog pens out of the ER. Discussed the risk of over taking insulin. Patient has used insulin in the past. I will provide a few days until he can have appropriate follow-up. He is recommended to follow-up with her primary care physician. States he is currently switching primary care physician as he just moved to the area. Provided community health follow-up. Return precautions were discussed with patient. Impression Primary Impression: Type 2 diabetes mellitus Disposition: 01 HOME, SELF-CARE Condition: Stable Departure-Patient Inst. Decision time for Depature: 22:35 Referrals: [facility] [place] ANTONINO,LOCAL PHYSICIAN (PCP) Primary Care Physician Patient Instructions: High Blood Sugar, Adult ED Scripts Insulin Aspart (Novolog Flexpen) 100 Unit/Ml (3 Ml) Solution 25 UNITS SQ AC PRN for Before Meal, #5 EA Prov: AWA BLOOM 04/17/22 AWA BLOOM April 17, 2022 20:48
[2022-04-17 20:54] LABS: BASOPHILS % (AUTO) 1 % (0-10); EOSINOPHILS # (AUTO) 0.4 10^3/uL (0.0-0.3); EOSINOPHILS % (AUTO) 6 % (0-10); HEMATOCRIT 44 % (40-54); HEMOGLOBIN 15.6 g/dL (13.3-17.7); LYMPHOCYTES # (AUTO) 1.6 10^3/uL (1.0-4.0); LYMPHOCYTES % (AUTO) 25 % (12-44); MEAN CORPUSCULAR HEMOGLOBIN 29 pg (25-34); MEAN CORPUSCULAR HGB CONC 36 g/dL (32-36); MEAN CORPUSCULAR VOLUME 83 fL (80-99); MEAN PLATELET VOLUME 11.9 fL (9.0-12.2); MONOCYTES # (AUTO) 0.5 10^3/uL (0.0-1.0); MONOCYTES % (AUTO) 8 % (0-12); NEUTROPHILS # (AUTO) 3.8 10^3/uL (1.8-7.8); NEUTROPHILS % (AUTO) 60 % (42-75); PLATELET COUNT 161 10^3/uL (130-400); WHITE BLOOD COUNT 6.4 10^3/uL (4.3-11.0)
[2022-04-17 21:11] LABS: ALBUMIN 4.2 GM/DL (3.2-4.5); POTASSIUM 3.8 MMOL/L (3.6-5.0)
[2022-04-17 21:12] LABS: CALCIUM 8.7 MG/DL (8.5-10.1)
[2022-04-17 21:13] LABS: TOTAL PROTEIN 6.8 GM/DL (6.4-8.2)
[2022-04-17 21:15] LABS: BILIRUBIN,TOTAL 2.4 MG/DL (0.1-1.0)
[2022-04-17] MEDS ORDERED: inSUlin (REGULAR) HUMAN 1 UNIT/0.01 ML (CHARGE PER UNIT) IV ONE (21:15)
[2022-04-17 21:17] LABS: CREATININE SERUM 1.42 MG/DL (0.60-1.30)
[2022-04-17] MEDS ORDERED: inSUlin (REGULAR) HUMAN 1 UNIT/0.01 ML (CHARGE PER UNIT) ONE (21:20)
[2022-04-17] MEDS ORDERED: NS IV 1000 ML 1,000 ML ONE (21:20)
[2022-04-17 21:29] LABS: BILIRUBIN,URINE NEGATIVE (NEGATIVE); CLARITY,URINE CLEAR; COLOR,URINE YELLOW; GLUCOSE, URINE (UA) 3+ (NEGATIVE); KETONES,URINE NEGATIVE (NEGATIVE); LEUKOCYTE ESTERASE ,URINE NEGATIVE (NEGATIVE); NITRITE,URINE NEGATIVE (NEGATIVE); PROTEIN,URINE NEGATIVE (NEGATIVE)
[2022-04-17 21:36] LABS: BACTERIA,URINE NEGATIVE /HPF
[2022-04-17 21:56] LABS: AMPHETAMINE SCREEN, URINE NEGATIVE (NEGATIVE); BARBITURATE SCREEN URINE NEGATIVE (NEGATIVE); BENZODIAZEPINES SCREEN URINE NEGATIVE (NEGATIVE); CANNABINOID SCREEN, URINE NEGATIVE (NEGATIVE); COCAINE SCREEN URINE NEGATIVE (NEGATIVE); OPIATE SCREEN URINE NEGATIVE (NEGATIVE)
[2022-04-17 21:57] LABS: METHADONE STAT NEGATIVE (NEGATIVE); OXYCODONE STAT NEGATIVE (NEGATIVE); PROPOXYPHENE STAT NEGATIVE (NEGATIVE); TRICYCLIC ANTIDEPRESSANTS SCRE POSITIVE (NEGATIVE)
[2022-04-17] MEDS ORDERED: INSU100I14 SQ (22:00)
[2022-04-17 22:29] LABS: POTASSIUM 3.5 MMOL/L (3.6-5.0)
[2022-04-17 22:30] LABS: CALCIUM 8.1 MG/DL (8.5-10.1)
[2022-04-17 22:34] LABS: CREATININE SERUM 0.91 MG/DL (0.60-1.30)
[2022-04-17 22:47] VITALS: BP 131/91
== END 2022-04-17 22:48 | disposition home or self-care (01) ==
LOC: EDUNIT# 20:31 → ER 20:32
DX: E11.65 Type 2 diabetes mellitus with hyperglycemia (principal); T38.3X6A Underdosing of insulin and oral hypoglycemic [antidiabetic] drugs, initial encounter; E86.0 Dehydration; R94.4 Abnormal results of kidney function studies; Z91.14 Patient's other noncompliance with medication regimen; Z79.4 Long term (current) use of insulin
CPT/HCPCS: 36415; 80048; 80053; 80306; 81000; 82010; 85025

== ENCOUNTER 2022-09-12 06:19 | Emergency (ER) | payer OTHER ==
[~2022-09-12] VITALS: Ht 172 cm; Wt 108.8 kg
[~2022-09-12 06:19] MED LIST changes: +INSU100I14 SQ
--- NOTE | 2022-09-12 06:55 | ED General ---
General Chief Complaint: Psych/Social Disorder Stated Complaint: NOT SLEEPING/PSYCH ISSUES Nursing Triage Note: Patient states he has not been to sleep in 5 days and is now starting to see images that are not real. Patient states he does not want to hurt himself or anyone else and is not hearing any voices at this time. Patient would like something to help him sleep. Source of Information: Patient Exam Limitations: No Limitations History of Present Illness Date Seen by Provider: Sep 12, 2022 Time Seen by Provider: 06:35 Initial Comments Patient is a 46-year-old male with a history of diabetes and hypertension, also multiple psychiatric disorders including PTSD, depression, anxiety, rufina izophrenia and chronic insomnia who presents to the emergency department stating that he has not been able to sleep at all since Tuesday of last week. Patient states normally he can go 1 to 2 days and on the third days he will "crash". He has taken multiple oixe-xxy-oammalg remedies to try and sleep including Benadryl and melatonin. He states he tries to avoid caffeine in the evening. He states he is not drinking alcohol. He has a psychiatric provider through the [facility] in [place]. He states that last night he started hallucinating and that scared him so he decided to come to the emergency department. He states he does occasionally hear voices. He denies command hallucinations. No suicidal or homicidal ideation. He has been previously hospitalized for suicide attempt. He states that he has never had a prescription medication for sleep. He does take Seroquel during the day for his hallucinations. He denies any recent fevers, chills, cough or congestion. No complaints of illness or pain. He states his eyes, however, hurt because he has been awake for so many days. All other review of systems reviewed and negative except as stated Timing/Duration: 4-5 Days Severity: Severe Associated Systoms: Denies Symptoms Allergies and Home Medications Allergies Coded Allergies: No Known Drug Allergies (Unverified , 06/25/21) Patient Home Medication List Home Medication List Reviewed: Yes Aspirin (Aspirin EC) 81 Mg Tablet.dr, 81 MG PO DAILY, (Reported) Entered as Reported by: MARLA ROUSE on 06/26/21 1425 Atorvastatin Calcium (Atorvastatin Calcium) 80 Mg Tablet, 40 MG PO HS, (Reported) Entered as Reported by: MARLA ROUSE on 06/26/211424 Carvedilol (Carvedilol) 6.25 Mg Tablet, 6.125 MG PO BID, (Reported) Entered as Reported by: MARLA ROUSE on 06/26/211424 Empagliflozin (Jardiance) 25 Mg Tablet, 12.5 MG PO DAILY, (Reported) Entered as Reported by: MARLA ROUSE on 06/26/211424 Insulin Aspart (Insulin Aspart Flexpen) 100 Unit/1 Ml Insuln.pen, 10 UNIT SQ QID W/MEALS Prescribed by: DAVON RHODES on 06/28/21903 Insulin Aspart (Novolog Flexpen) 100 Unit/Ml (3 Ml) Solution, 25 UNITS SQ AC PRN for Before Meal Prescribed by: THANIA PARKER on 04/17/22 220 Insulin Glargine,Hum.rec.anlog (Lantus Solostar) 100 Unit/1 Ml Insuln.pen, 30 UNIT SQ HS Prescribed by: DAVON RHODES on 06/28/21903 Losartan Potassium (Losartan Potassium) 25 Mg Tablet, 25 MG PO DAILY, (Reported) Entered as Reported by: MARLA ROUSE on 06/26/211424 Metformin HCl (Metformin HCl ER) 500 Mg Tab.er.24, 1,000 MG PO BID, (Reported) Entered as Reported by: MARLA ROUSE on 06/26/211424 Olanzapine (Olanzapine) 5 Mg Tablet, 5 MG PO HS, (Reported) Entered as Reported by: MARLA ROUSE on 06/26/211424 Review of Systems Review of Systems Constitutional: see HPI EENTM: eye pain Respiratory: no symptoms reported Cardiovascular: no symptoms reported Gastrointestinal: no symptoms reported Genitourinary: no symptoms reported Musculoskeletal: no symptoms reported Skin: no symptoms reported Psychiatric/Neurological: Anxiety, Other (Hallucinations, visual and occasional auditory) All Other Systems Reviewed Negative Unless Noted: Yes Past Nzdbyph-Lmrejy-Kfbrju Hx Patient Social History Tobacco Use?: No Use of E-Cig and/or Vaping dev: No Substance use?: No Alcohol Use?: No Pt feels they are or have been: No Immunizations Up To Date First/Initial COVID19 Vaccinat: unknown Second COVID19 Vaccination King: 02/08 Third COVID19 Vaccination Date: 02/08 Past Medical History Surgery/Hospitalization HX: Schziophrenia, PTSD, Anxiety, Depression, Recent Heart Cath, HTN, High Cholesterol High Cholesterol, Hypertension Diabetes, Insulin dep Family Medical History No Pertinent Family Hx Physical Exam Vital Signs Vital Signs - First Documented 09/12/22 06:27 Temp 36.8 Pulse 82 Resp 16 B/P (MAP) 157/97 (117) Pulse Ox 97 O2 Delivery Room Air Capillary Refill : Less Than 3 Seconds Height, Weight, BMI Height: '" Weight: lbs. oz. 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 Does not appear fatigued. Does not appear to be responding to internal stimuli. Does not appear intoxicated.) Skin: Normal Color, Warm/Dry Progress/Results/Core Measures Suspected Sepsis SIRS Temperature: Pulse: 82 Respiratory Rate: 16 Blood Pressure 157 /97 Mean: 117 Results/Orders Vital Signs/I&O 09/12/22 06:27 Temp 36.8 Pulse 82 Resp 16 B/P (MAP) 157/97 (117) Pulse Ox 97 O2 Delivery Room Air Capillary Refill : Less Than 3 Seconds Blood Pressure Mean: 117 Progress Note : Time: 07:11 Progress Note Patient is sitting comfortably on the bed in no acute distress. He is requesting prescription medication for sleep. At one point he request some Ativan he believes he has been prescribed this before for sleep. He cannot seem to accurately recall his medications. He states its just been about 4 or 5 days ago that he talk [facility]. I do question the veracity of some of his complaints secondary to how well he looks currently. I am going to give him 5 days of doxepin as I believe this is a safe medication to give out of the emergency department for him and if he should happen to take all 5 of them at once it would not be a toxic dose. Recommendations for him to follow-up tomorrow with his psychiatric provider through the [facility] for further management of his sleep disorder. No clinical or objective findings at this time to warrant large work-up from the emergency department. His vital signs are stable. All questions are sought and answered he is stable for discharge Departure Impression Primary Impression: Insomnia Qualified Codes: G47.00 - Insomnia, unspecified Disposition: 01 HOME, SELF-CARE Condition: Stable Departure-Patient Inst. Decision time for Depature: 07:13 Referrals: NO,LOCAL PHYSICIAN (PCP/Family) Primary Care Physician Patient Instructions: Insomnia Add. Discharge Instructions: Please drink plenty of fluids to stay well-hydrated. Continue your daily medications as prescribed. I have given you a prescription for doxepin 10 mg you can take 1 of these in the evening along with Benadryl and melatonin to assist in sleep. Please call your primary care provider through the [facility] TOMORROW for further management of your sleep disorder. Do not drive and take sleep medications. Return to the emergency department for any new, concerning or emergent complai nts. Scripts Doxepin HCl (Doxepin HCl) 10 Mg Capsule 10 MG PO HS, #5 CAP Prov: FARNAZ OREILLY MD 09/12/22 FARNAZ OREILLY MD Sep 12, 2022 06:55
[2022-09-12] MEDS ORDERED: DOXE10CA29 PO (07:15)
[2022-09-12 07:19] VITALS: BP 157/97
== END 2022-09-12 07:19 | disposition home or self-care (01) ==
LOC: EDUNIT# 06:19 → ER 06:22
DX: F51.04 Psychophysiologic insomnia (principal); E11.9 Type 2 diabetes mellitus without complications; Z79.4 Long term (current) use of insulin
CPT/HCPCS: 99281

== ENCOUNTER 2023-03-07 12:44 | Emergency (ER) | payer OTHER ==
[~2023-03-07] VITALS: Ht 172.7 cm; Wt 99.7 kg
[~2023-03-07 12:44] MED LIST changes: +DOXE10CA29 PO
[2023-03-07 13:28] VITALS: BP 129/88
[2023-03-07] MEDS ORDERED: LORazepam 0.5 MG (ATIVAN) TABLET PO STA (13:55)
--- NOTE | 2023-03-07 14:00 | ED General ---
General Chief Complaint: Psych/Social Disorder Stated Complaint: ANXIETY Nursing Triage Note: PT AMB TO TRIAGE WITH COMPLAINT OF WORSENING ANXIETY AND PANIC ATTACKS. STATES TAKES MEDICATION FOR ANXIETY, BUT HAS NOT BEEN HELPINGT HE LAST FEW DAYS. FOLLOWS WITH THE MA FOR MENTAL HEALTH, BUT IS IN THE PROCESS OF SWITCHING TO [facility]. Source of Information: Patient Exam Limitations: No Limitations History of Present Illness Date Seen by Provider: Mar 07, 2023 Time Seen by Provider: 13:56 Initial Comments Patient is a 47-year-old male who presents ED for panic attack. States he has been having increased anxiety over the past week. Reports jitteriness, shakiness. Patient states he currently follows with a psychiatrist with the [facility]. Recently switched over to [facility] had a visit last week scheduled for a follow-up this upcoming week. Patient currently takes doxepin, benztropine, prazosin, buspirone, vilazodone. History of similar type anxiety and panic attacks. Increase stress. Denies of any suicidal homicidal thoughts. Patient states typically he receives a dose of Ativan or Xanax to help with his symptoms. Denies fever, chills, headache, chest pain, shortness of breath, cough. Allergies and Home Medications Allergies Coded Allergies: No Known Drug Allergies (Unverified , 06/25/21) Patient Home Medication List Home Medication List Reviewed: Yes Alprazolam (Xanax) 0.5 Mg Tablet, 0.5 MG PO TID PRN for ANXIETY Prescribed by: THANIA PARKER on 03/07/23 1440 Aspirin (Aspirin EC) 81 Mg Tablet., 81 MG PO DAILY, (Reported) Entered as Reported by: MARLA ROUSE on 06/26/21 1425 Atorvastatin Calcium (Atorvastatin Calcium) 80 Mg Tablet, 40 MG PO HS, (Reported) Entered as Reported by: MARLA ROUSE on 06/26/21 1425 Carvedilol (Carvedilol) 6.25 Mg Tablet, 6.125 MG PO BID, (Reported) Entered as Reported by: MARLA ROUSE on 06/26/21 1425 Doxepin HCl (Doxepin HCl) 10 Mg Capsule, 10 MG PO HS Prescribed by: FARNAZ OREILLY on 09/12/22 0715 Empagliflozin (Jardiance) 25 Mg Tablet, 12.5 MG PO DAILY, (Reported) Entered as Reported by: MARLA ROUSE on 06/26/21 142 Insulin Aspart (Insulin Aspart Flexpen) 100 Unit/1 Ml Insuln.pen, 10 UNIT SQ QID W/MEALS Prescribed by: DAVON RHODES on 06/28/21 09 Insulin Aspart (Novolog Flexpen) 100 Unit/Ml (3 Ml) Solution, 25 UNITS SQ AC PRN for Before Meal Prescribed by: THANIA PARKER on 04/17/22 220 Insulin Glargine,Hum.rec.anlog (Lantus Solostar) 100 Unit/1 Ml Insuln.pen, 30 UNIT SQ HS Prescribed by: DAVON RHODES on 06/28/21 09 Losartan Potassium (Losartan Potassium) 25 Mg Tablet, 25 MG PO DAILY, (Reported) Entered as Reported by: MARLA ROUSE on 06/26/21 142 Metformin HCl (Metformin HCl ER) 500 Mg Tab.er.24, 1,000 MG PO BID, (Reported) Entered as Reported by: MARLA ROUSE on 06/26/211424 Olanzapine (Olanzapine) 5 Mg Tablet, 5 MG PO HS, (Reported) Entered as Reported by: MARLA ROUSE on 06/26/211424 Review of Systems Review of Systems Constitutional: No chills, No diaphoresis EENTM: No ear pain, No blurred vision, No double vision Respiratory: No cough Cardiovascular: No chest pain Gastrointestinal: No abdominal pain, No diarrhea, No nausea, No vomiting Genitourinary: No decreased output, No discharge Musculoskeletal: No back pain, No joint pain Skin: No change in color, No change in hair/nails Psychiatric/Neurological: Anxiety; Denies Depressed All Other Systems Reviewed Negative Unless Noted: Yes Past Tmdgvbt-Tcrqoc-Natvoo Hx Patient Social History Tobacco Use?: No Use of E-Cig and/or Vaping dev: No Substance use?: No Alcohol Use?: No Pt feels they are or have been: No Immunizations Up To Date First/Initial COVID19 Vaccinat: unknown Second COVID19 Vaccination King: unknown Third COVID19 Vaccination Date: unknown Past Medical History Surgery/Hospitalization HX: Schziophrenia, PTSD, Anxiety, Depression, Recent Heart Cath, HTN, High Cholesterol High Cholesterol, Hypertension Diabetes, Insulin dep Family Medical History No Pertinent Family Hx Physical Exam Vital Signs Vital Signs - First Documented 03/07/23 13:28 Pulse 94 Resp 25 B/P (MAP) 129/88 (102) Pulse Ox 95 O2 Delivery Room Air Capillary Refill : Less Than 3 Seconds Height, Weight, BMI Height: '" Weight: lbs. oz. kg; 33.00 BMI Method: General Appearance: No Apparent Distress, WD/WN Eyes: Bilateral Eye Normal Inspection, Bilateral Eye PERRL, Bilateral Eye EOMI HEENT: PERRL/EOMI, TMs Normal, Normal ENT Inspection, Pharynx Normal Neck: Full Range of Motion, Normal Inspection, Non Tender, Supple Respiratory: Chest Non Tender, Lungs Clear, Normal Breath Sounds, No Accessory Muscle Use, No Respiratory Distress Cardiovascular: Regular Rate, Rhythm, No Edema, No Gallop, No JVD, No Murmur Gastrointestinal: Normal Bowel Sounds, No Organomegaly, No Pulsatile Mass, Non Tender Back: Normal Inspection, No CVA Tenderness, No Vertebral Tenderness Extremity: Normal Capillary Refill, Normal Inspection, Normal Range of Motion, Non Tender Neurologic/Psychiatric: Alert, Oriented x3, No Motor/Sensory Deficits, 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 Differential diagnosis of panic attack, anxiety. Follows up with [facility] psychiatrist and recently switched to [facility] this past week. He has scheduled for follow-up again this next week. Patient states increased anxiety, jitteriness. Increase in stressors. Denies of any suicidal homicidal thoughts. Denies any drug use or alcohol use. patient appears anxious. Denies of any fever, chills, weight changes, loss of hair, history of thyroid disease, history of coronary artery disease. Type II diabetic currently on medication. States his blood sugar has been running around 120-130 at home. No frequent urination, abdominal pain, vomiting or diarrhea. Patient was given a dose of Ativan with improvement of his symptoms. Patient Was requesting a few days worth until his follow-up later next week. Denies any drug use or alcohol use. Avoid alcohol or narcotics with the benzos. Patient acknowledges. Provided a few days worth exam ask 0.5 mg as needed. Continue with your regimen. If any worsening symptoms return back to ED for further evaluation. Impression Primary Impression: Anxiety Disposition: HOME, SELF-CARE Condition: Stable Departure-Patient Inst. Decision time for Depature: 14:39 Referrals: EDYTA FERGUSON DO (PCP/Family) Primary Care Physician Patient Instructions: Anxiety, Adult (DC) Scripts Alprazolam (Xanax) 0.5 Mg Tablet 0.5 MG PO TID PRN for ANXIETY, #6 TAB Prov: AWA BLOOM 03/07/23 AWA BLOOM Mar 07, 2023 14:00
[2023-03-07] MEDS ORDERED: ALPR0.5T PO (14:40)
== END 2023-03-07 14:49 | disposition home or self-care (01) ==
LOC: EDUNIT# 12:44 → ER 12:48
DX: F41.9 Anxiety disorder, unspecified (principal); F32.A Depression, unspecified; E11.9 Type 2 diabetes mellitus without complications; I10 Essential (primary) hypertension; Z79.899 Other long term (current) drug therapy; Z79.4 Long term (current) use of insulin
CPT/HCPCS: 99283

== ENCOUNTER 2023-03-31 13:30 | Emergency (ER) | payer OTHER ==
[~2023-03-31] VITALS: Ht 175 cm; Wt 99.7 kg
[~2023-03-31 13:30] MED LIST changes: +ALPR0.5T PO
[2023-03-31 13:35] VITALS: BP 107/76
[2023-03-31] MEDS ORDERED: ALPR0.5T PO (13:56)
--- NOTE | 2023-03-31 13:57 | ED General ---
General Chief Complaint: Psych/Social Disorder Stated Complaint: PANIC ATTACK | ANXIETY Nursing Triage Note: SEVERE ANXIETY FOR LAST COUPLE OF MONTHS. OUT OF MEDS. Source of Information: Patient Exam Limitations: No Limitations History of Present Illness Date Seen by Provider: March 31, 2023 Time Seen by Provider: 13:53 Initial Comments Patient is a 47-year-old male with a history of anxiety and panic attacks who presents ED for increased anxiety, jitteriness, shakiness. States symptoms started last night. Patient currently takes 0.5 mg Xanax as needed. States he has been on Xanax for few years now. [facility] and he started having increased panic attacks. Scheduled to follow-up with [facility] nurse practitioner on April 11. Did receive a dose here in the ER on February 19 and a second prescription on March 17. Patient denies chest pain, cough, shortness of breath, fever, chills. Patient does currently take doxepin, benztropine, prazosin, buspirone,. Patient denies suicidal or homicidal thoughts Allergies and Home Medications Allergies Coded Allergies: No Known Drug Allergies (Unverified , 06/25/21) Patient Home Medication List Home Medication List Reviewed: Yes Alprazolam (Xanax) 0.5 Mg Tablet, 0.5 MG PO TID PRN for ANXIETY Prescribed by: THANIA PARKER on 03/07/23 1440 Alprazolam (Xanax) 0.5 Mg Tablet, 0.5 MG PO TID Prescribed by: THANIA PARKER on 03/31/23 1356 Aspirin (Aspirin EC) 81 Mg Tablet.dr, 81 MG PO DAILY, (Reported) Entered as Reported by: MARLA ROUSE on 06/26/21 1425 Atorvastatin Calcium (Atorvastatin Calcium) 80 Mg Tablet, 40 MG PO HS, (Repor robyn) Entered as Reported by: MARLA ROUSE on 06/26/21 1425 Carvedilol (Carvedilol) 6.25 Mg Tablet, 6.125 MG PO BID, (Reported) Entered as Reported by: MARLA ROUSE on 06/26/21 1425 Doxepin HCl (Doxepin HCl) 10 Mg Capsule, 10 MG PO HS Prescribed by: FARNAZ OREILLY on 09/12/22 0715 Empagliflozin (Jardiance) 25 Mg Tablet, 12.5 MG PO DAILY, (Reported) Entered as Reported by: MARLA ROUSE on 06/26/21 142 Insulin Aspart (Insulin Aspart Flexpen) 100 Unit/1 Ml Insuln.pen, 10 UNIT SQ QID W/MEALS Prescribed by: DAVON RHODES on 06/28/21 09 Insulin Aspart (Novolog Flexpen) 100 Unit/Ml (3 Ml) Solution, 25 UNITS SQ AC PRN for Before Meal Prescribed by: THANIA PARKER on 04/17/22 2200 Insulin Glargine,Hum.rec.anlog (Lantus Solostar) 100 Unit/1 Ml Insuln.pen, 30 UNIT SQ HS Prescribed by: DAVON RHODES on 06/28/21 09 Losartan Potassium (Losartan Potassium) 25 Mg Tablet, 25 MG PO DAILY, (Reported) Entered as Reported by: MARLA ROUSE on 06/26/21 142 Metformin HCl (Metformin HCl ER) 500 Mg Tab.er.24, 1,000 MG PO BID, (Reported) Entered as Reported by: MARLA ROUSE on 06/26/211424 Olanzapine (Olanzapine) 5 Mg Tablet, 5 MG PO HS, (Reported) Entered as Reported by: MARLA ROUSE on 06/26/211424 Review of Systems Review of Systems Constitutional: No dizziness, No fever, No malaise, No weakness EENTM: No ear pain, No blurred vision, No double vision, No hoarseness, No mouth pain, No mouth swelling, No throat pain, No throat swelling Respiratory: No cough, No dyspnea on exertion Cardiovascular: No chest pain Gastrointestinal: No abdominal pain, No diarrhea, No nausea, No vomiting Genitourinary: No decreased output, No discharge Musculoskeletal: No back pain, No joint pain Skin: No change in color, No change in hair/nails Psychiatric/Neurological: Anxiety, Other (Anxiousness) All Other Systems Reviewed Negative Unless Noted: Yes Past Oyfytmn-Izjowc-Rrokno Hx Patient Social History Tobacco Use?: No Substance use?: No Alcohol Use?: No Immunizations Up To Date First/Initial COVID19 Vaccinat: unknown Second COVID19 Vaccination King: unknown Third COVID19 Vaccination Date: unknown Past Medical History Surgery/Hospitalization HX: Schziophrenia, PTSD, Anxiety, Depression, Recent Heart Cath, HTN, High Cholesterol High Cholesterol, Hypertension Diabetes, Insulin dep Family Medical History No Pertinent Family Hx Physical Exam Vital Signs Vital Signs - First Documented 03/31/23 13:35 Temp 36.7 Pulse 86 Resp 16 B/P (MAP) 107/76 (86) Pulse Ox 97 O2 Delivery Room Air Capillary Refill : Less Than 3 Seconds Height, Weight, BMI Height: '" Weight: lbs. oz. kg; 32.00 BMI Method: General Appearance: No Apparent Distress, WD/WN Eyes: Bilateral Eye Normal Inspection, Bilateral Eye PERRL, Bilateral Eye EOMI HEENT: PERRL/EOMI, TMs Normal, Normal ENT Inspection, Pharynx Normal Neck: Full Range of Motion, Normal Inspection, Non Tender Respiratory: Chest Non Tender, Lungs Clear, Normal Breath Sounds, No Accessory Muscle Use, No Respiratory Distress Cardiovascular: Regular Rate, Rhythm, No Edema, No Gallop, No JVD Gastrointestinal: Normal Bowel Sounds, No Organomegaly, No Pulsatile Mass, Non Tender Back: Normal Inspection, No CVA Tenderness, No Vertebral Tenderness Extremity: Normal Capillary Refill, Normal Inspection, Normal Range of Motion, Non Tender Neurologic/Psychiatric: Alert, Oriented x3, No Motor/Sensory Deficits, 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, 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 Patent Was seen here on March 07 for anxiety was given few days worth of his Xanax 0.5 mg which she does take intermittently for panic attacks. Increase anxiety since last night. Denies of any triggers. States he followed up with nurse practitioner Jana on March 17 and received a second prescription. Has a follow-up on April 11. He Was not able to be seen today. Requesting a refill of his Xanax. Discussed with patient that he needs to follow-up with his primary care physician for refill of his medication. This is not typically done in the ER. I was willing to give him medication for today. Discussed going to [facility] walk-in clinic or contacting the nurse of his primary care physician for follow up or refill. States he [facility] Patient stopped the medication as his panic attacks were better controlled. He is on several other medication for anxiety. Denies any drug use, alcohol use. Denies chest pain, cough or shortness of breath. Patient denies suicidal or homicidal thoughts. complaining of feeling anxious, jitteriness. Patient does appear anxious. Provided 3 doses of his Xanax 0.5 mg. Recommend contacting your primary care physician. Return precaution were discussed Impression Primary Impression: Anxiety Disposition: 01 HOME, SELF-CARE Condition: Stable Departure-Patient Inst. Decision time for Depature: 13:55 Referrals: EDYTA FERGUSON DO (PCP) Primary Care Physician [facility] Patient Instructions: Anxiety, Adult (DC) Add. Discharge Instructions: Recommend going to the walk-in clinic at [facility] or call your primary care physician for a refill of your medication. Would recommend following up with behavioral health as well. All discharge instructions reviewed with patient and/or family. Voiced understanding. Scripts Alprazolam (Xanax) 0.5 Mg Tablet 0.5 MG PO TID for Anxiety, #3 TAB Prov: AWA BLOOM 03/31/23 AWA BLOOM March 31, 2023 13:57
[2023-03-31] MEDS: ALPRAZolam 0.5 MG (XANAX) TAB PO SCH ×2 (14:00→14:03)
[2023-03-31] MEDS ORDERED: ALPRAZolam 0.5 MG (XANAX) TAB ONE (14:01)
== END 2023-03-31 14:08 | disposition home or self-care (01) ==
LOC: EDUNIT# 13:30 → ER 13:32
DX: F41.9 Anxiety disorder, unspecified (principal); I10 Essential (primary) hypertension; E11.9 Type 2 diabetes mellitus without complications; F32.A Depression, unspecified; Z79.4 Long term (current) use of insulin; Z79.899 Other long term (current) drug therapy
CPT/HCPCS: 99281